=== PATIENT | male | born 1990 | race American Indian/Alaskan Native ===

== ENCOUNTER 2016-09-21 10:17 | Emergency (ER) | payer MEDICAID ==
[2016-09-21 10:25] VITALS: BP 137/82
[2016-09-21] MEDS ORDERED: Lidocaine 1% 30 ML SDV INJECT ONE (10:42)
--- NOTE | 2016-09-21 10:48 | EDM.PDOC ---
ED HPI GENERAL MEDICAL PROBLEM - General Chief Complaint: Skin Complaint Stated Complaint: [id number] BOIL Time Seen by Provider: 09/21/16 10:40 Source of Information: Reports: Patient History Limitations: Reports: No Limitations - History of Present Illness INITIAL COMMENTS - FREE TEXT/NARRATIVE: This 26 yo male patient reports to the ED with a 2-3 day history of an abscess in his left axilla. The patient reports he has had numerous abscesses drained, but has not had any follow-up with his primary care facility or a plastic design applier. The patient reports has been attempting to drain the abscess, but has not been able to "pop" it. The patient reports a history of MRSA. Onset Date: 09/18/16 Duration: Constant, Getting Worse Location: Reports: Upper Extremity, Left (axilla) Quality: Reports: Ache, Dull Severity: Moderate Improves with: Reports: None Worsens with: Reports: None Associated Symptoms: Reports: No Other Symptoms - Related Data Allergies Allergy/AdvReac Type Severity Reaction Status Date / Time No Known Allergies Allergy Verified 09/21/16 10:25 Home Meds: Home Meds Acetaminophen [Tylenol Extra Strength] 1,000 mg PO Q6HR PRN 06/18/14 [History] Ibuprofen 1,600 mg PO ONETIME 06/18/14 [History] Albuterol [IJD: Albuterol HFA] 1 puff .XX 09/21/16 [History] Past Medical History Respiratory History: Reports: Asthma, COPD Dermatologic History: Reports: Other (See Below) - Infectious Disease History Infectious Disease History: Reports: MRSA Social & Family History - Family History Family Medical History: Noncontributory - Tobacco Use Smoking Status *Q: Current Every Day Smoker Years of Tobacco use: 9 Packs/Tins Daily: 0.8 Used Tobacco, but Quit: No Second Hand Smoke Exposure: Yes - Caffeine Use Caffeine Use: Reports: Coffee, Energy Drinks, Soda - Alcohol Use Days Per Week of Alcohol Use: 0 - Recreational Drug Use Recreational Drug Use: No - Living Situation & Occupation Living situation: Reports: with Family Occupation: Employed ED ROS GENERAL - Review of Systems Review Of Systems: ROS reveals no pertinent complaints other than HPI. ED EXAM, SKIN/RASH Exam: See Below Exam Limited By: No Limitations General Appearance: Alert, WD/WN, Moderate Distress Eye Exam: Bilateral Eye: EOMI, Normal Inspection, PERRL Ears: Normal External Exam, Normal Canal, Hearing Grossly Normal, Normal TMs Nose: Normal Inspection, Normal Mucosa, No Blood Throat/Mouth: Normal Inspection, Normal Lips, Normal Teeth, Normal Gums, Normal Oropharynx, Normal Voice, No Airway Compromise Head: Atraumatic, Normocephalic Neck: Normal Inspection, Supple, Non-Tender, Full Range of Motion Respiratory/Chest: No Respiratory Distress, Lungs Clear, Normal Breath Sounds, No Accessory Muscle Use, Chest Non-Tender Cardiovascular: Normal Peripheral Pulses, Regular Rate, Rhythm, No Edema, No Gallop, No JVD, No Murmur, No Rub GI/Abdominal: Normal Bowel Sounds, Soft, Non-Tender, No Organomegaly, No Distention, No Abnormal Bruit, No Mass (Male) Exam: Deferred Rectal (Males) Exam: Deferred Extremities: Arm Pain (left axilla abscess) Neurological: Alert, Oriented, CN II-XII Intact Psychiatric: Normal Affect, Normal Mood Skin: Erythema, Increased Warmth Location, Skin: Upper Extremity, Left (axilla) Characteristics: Erythematous Associated features: Warmth, Tenderness, Wwelling, Induration Lymphatic: No Adenopathy ED SKIN PROCEDURES - I&D Site: left axilla Skin Prep: Providone-Iodine (Betadine) Local Anesthesia: Lidocaine: 1% Plain Local Anesthetic Volume: 3cc Area Incised With: 15 Blade Drainage: Purulent, Bloody, Moderate Amount Probed to Break Up Loculations: Yes Packed With: 1/4 in. Iodoform Sterile Dressinx4(s) Complications: No Course - Vital Signs Last Recorded V/S: Last Vital Signs Temp 36.9 C 09/21/16 10:21 Pulse 98 09/21/16 10:21 Resp 18 09/21/16 10:21 BP 137/82 09/21/16 10:21 Pulse Ox 98 09/21/16 10:21 - Orders/Labs/Meds Meds: Medications Discontinued Medications Generic Name Dose Route Start Last Admin Trade Name Freq PRN Reason Stop Dose Admin Hydrocodone Bitart/Acetaminophen 1 tab 09/21/16 11:02 [place] 325-10 Mg PO 09/21/16 11:03 ONETIME ONE Lidocaine HCl 30 ml 09/21/16 10:42 09/21/16 10:49 Xylocaine-Mpf 1% INJECT 09/21/16 10:43 30 ml ONETIME ONE Administration Departure - Departure Time of Disposition: 11:05 Disposition: Home, Self-Care 01 Condition: Fair Clinical Impression: Abscess of left axilla - Discharge Information Instructions: Abscess, [id number] Forms: ED Department Discharge Care Plan Goals: The patient's abscess was incised and drained during the visit in the ED. A sample of the drainage was sent to lab for further analysis. The patient was given an oral dose of [place] () while in the ED. The patient was discharged with a script for Keflex (500 mg) #40 to take 1 by mouth 4 times per day for 10 days and Bactrim DS #20 to take 1 by mouth 2 times per day for 10 days. The patient should follow-up with his primary care facility for continued evaluation (possible dermatology consult) and treatment.
[2016-09-21] MEDS ORDERED: Acetaminophen/HYDROcodone 325-10 MG Tab PO ONE (11:02)
== END 2016-09-21 11:13 | disposition home or self-care (01) ==
LOC: DL.ED 10:17
DX: L02.412 Cutaneous abscess of left axilla (principal); J45.909 Unspecified asthma, uncomplicated; J44.9 Chronic obstructive pulmonary disease, unspecified; F17.210 Nicotine dependence, cigarettes, uncomplicated
CPT/HCPCS: 10061; 87070; 87077; 87186; 99283; A9270

== ENCOUNTER 2017-02-12 16:55 | Emergency (ER) | payer MEDICAID ==
[2017-02-12 18:27] VITALS: BP 136/72
== END 2017-02-12 21:10 | disposition left against medical advice (07) ==
LOC: DL.ED 16:55
DX: Z53.21 Procedure and treatment not carried out due to patient leaving prior to being seen by health care provider (principal)
CPT/HCPCS: 99282

== ENCOUNTER 2017-02-16 09:36 | Day surgery (SDC) | payer MEDICAID ==
[2017-02-16] MEDS ORDERED: Dexamethasone 4 MG/ML SDV IV ONE (09:37)
[2017-02-16] MEDS ORDERED: Ketorolac 30 MG/ML SDV IVPUSH ONE (09:37)
[2017-02-16] MEDS ORDERED: fentaNYL 100 MCG/2 ML SDV IV ONE (09:37)
[2017-02-16] MEDS ORDERED: Lidocaine 1% 30 ML SDV INJECT ONE (09:37)
[2017-02-16] MEDS ORDERED: Ondansetron 4 MG/2 ML SDV IV ONE (09:37)
[2017-02-16] MEDS ORDERED: Propofol 200 MG/20 ML SDV IV ONE (09:37)
[2017-02-16] MEDS ORDERED: Midazolam 1 MG/ML 2 ML SDV IV ONE (09:37)
[2017-02-16] MEDS ORDERED: Lactated Ringers 1,000 ML IV SCH (10:15)
[2017-02-16] MEDS ORDERED: Lidocaine 1% 30 ML SDV ONE (10:47)
[2017-02-16] MEDS ORDERED: Lidocaine 1% 30 ML SDV INFILT ONE (11:13)
--- NOTE | 2017-02-18 10:41 | OR ---
DATE: 02/16/2017 PREOPERATIVE DIAGNOSES: Chronic bilateral axillary hidradenitis, left greater than right, with abscess in left axilla. POSTOPERATIVE DIAGNOSES: Chronic bilateral axillary hidradenitis, left greater than right, with abscess in left axilla. PROCEDURE: Incision and drainage with packing of axillary abscess, left side. ANESTHESIA: Local plus MAC. SPECIMEN: None. INDICATION FOR PROCEDURE: This 26-year-old male has chronic hidradenitis bilaterally of the axilla. He has had multiple incision and drainages of both sides, the left seems to be more bothersome than the right. By physical examination, he has a very painful tender mass in the anterior portion of the left axilla. On palpation, it expresses some purulent material. He is currently on antibiotics but is not totally improving yet. PROCEDURE IN DETAIL: After adequate preparation, an incision was made in the anterior portion of the left axilla. This was then opened widely using a Pean clamp to break up the loculations in the subcutaneous tissue. This was then suctioned clear and irrigated. Hemostasis was accomplished by cautery, and the wound was packed with a 2 x 2 sponge. [facility] /[id number]
[2017-02-18 14:31] VITALS: BP 119/75
== END 2017-02-16 13:30 | disposition home or self-care (01) ==
LOC: DL.SDS 09:36
PROVIDERS: ATTEND Surgery
DX: L73.2 Hidradenitis suppurativa (principal); L02.412 Cutaneous abscess of left axilla; L02.411 Cutaneous abscess of right axilla; J44.9 Chronic obstructive pulmonary disease, unspecified; E78.5 Hyperlipidemia, unspecified; K21.9 Gastro-esophageal reflux disease without esophagitis; F17.210 Nicotine dependence, cigarettes, uncomplicated; Z79.2 Long term (current) use of antibiotics; Z98.890 Other specified postprocedural states; Z79.899 Other long term (current) drug therapy
CPT/HCPCS: 10061; J7120; J1100; J1885; J2250; J2405; J2704; J3010

== ENCOUNTER 2017-03-15 08:03 | Day surgery (SDC) | payer MEDICAID ==
[2017-03-15] MEDS ORDERED: Midazolam 1 MG/ML 2 ML SDV IV ONE (08:04)
[2017-03-15] MEDS ORDERED: Propofol 200 MG/20 ML SDV IV ONE (08:04)
[2017-03-15] MEDS ORDERED: Ketorolac 30 MG/ML SDV IVPUSH ONE (08:04)
[2017-03-15] MEDS ORDERED: Dexamethasone 4 MG/ML SDV IV ONE (08:04)
[2017-03-15] MEDS ORDERED: Ondansetron 4 MG/2 ML SDV IV ONE (08:04)
[2017-03-15] MEDS ORDERED: fentaNYL 100 MCG/2 ML SDV IV ONE (08:04)
[2017-03-15] MEDS ORDERED: Lactated Ringers 1,000 ML IV SCH (08:45)
[2017-03-15] MEDS: HYDROmorphone 1 MG/ML Syringe IVPUSH SCH ×2 (11:55→12:20)
[2017-03-15 14:23] VITALS: BP 138/76
--- NOTE | 2017-03-15 15:54 | OR ---
DATE: 03/15/2017 PREOPERATIVE DIAGNOSIS: Chronic left axillary hidradenitis suppurativa. POSTOPERATIVE DIAGNOSIS: Chronic left axillary hidradenitis suppurativa. PROCEDURE: Wide local excision of axillary skin secondary to chronic infections. ANESTHESIA: General. ESTIMATED BLOOD LOSS: Minimal. SPECIMEN: Axillary skin. INDICATION FOR PROCEDURE: This 26-year-old male has had a long history of multiple abscesses in the axilla. He has a several drainage sites and several areas that have had recurrent abscess formation. This is consistent with hidradenitis. The risks, benefits, and expected outcomes of wide local excision as surgical treatment were discussed with him preoperatively. PROCEDURE IN DETAIL: After adequate preparation, elliptical incision was made in the left axillary skin, this was taken down to clear clean subcutaneous tissue and the skin and multiple abscess pockets were completely excised. This ended up measuring about 5 x 10 cm in an elliptical manner. Hemostasis was controlled, most of the rest of the tissue looked pretty healthy. The dermal layer was closed using interrupted 2-0 Vicryl sutures, and a 4-0 Monocryl was used to close the skin. This is somewhat tight in the anterior aspect and a few goldie were used to release some of the tension on the wound for the sutures, and a #10 Arnold-Gray drain had been placed previously and brought out through a separate stab incision. No other abnormalities were noted. [facility] /[id number]
== END 2017-03-15 13:29 | disposition home or self-care (01) ==
LOC: DL.SDS 08:03 → EDSTATUS 09:30 → DL.SDS 13:29
PROVIDERS: ATTEND Surgery
DX: L73.2 Hidradenitis suppurativa (principal); Z79.2 Long term (current) use of antibiotics; F17.200 Nicotine dependence, unspecified, uncomplicated
CPT/HCPCS: 11450; J1100; J1170; J1885; J2250; J2405; J2704; J3010; J7120

== ENCOUNTER 2018-09-23 03:39 | Emergency (ER) | payer MEDICAID, OTHER ==
[2018-09-23 03:49] VITALS: BP 130/84
[2018-09-23] MEDS ORDERED: Acetaminophen/HYDROcodone 325-10 MG Tab PO ONE (03:52)
--- NOTE | 2018-09-23 03:59 | EDM.PDOC ---
ED HPI GENERAL MEDICAL PROBLEM - General Chief Complaint: Skin Complaint Stated Complaint: BOIL IN ARMPIT Time Seen by Provider: 09/23/18 03:53 Source of Information: Reports: Patient History Limitations: Reports: No Limitations - History of Present Illness INITIAL COMMENTS - FREE TEXT/NARRATIVE: was seen at clinic in [place] earlier and did get it drained got doxycycline but nothing for pain. can't sleep. ER record show h/o prior surgical drainage by Dr Modi. Treatments LEGAL MANAGER: Reports: Acetaminophen Left Upper Axillary Pain Score (Numeric/FACES): 10 - Related Data Allergies Allergy/AdvReac Type Severity Reaction Status Date / Time No Known Allergies Allergy Verified 09/23/18 03:43 Home Meds: Home Meds Acetaminophen [Tylenol Extra Strength] 1,000 mg PO Q6HR PRN 06/18/14 [History] Ibuprofen 1,600 mg PO ONETIME 06/18/14 [History] Albuterol [IJD: Albuterol HFA] 1 puff INH ASDIRECTED 09/21/16 [History] Clindamycin Phosphate 1 applic TOP BID PRN 02/15/17 [History] Doxycycline [Vibramycin] 1 cap PO TID 02/15/17 [History] Sulfamethoxazole/Trimethoprim [Sulfamethoxazole-Tmp Ds Tablet] 1 tab PO BID [History] Past Medical History - Past Health History Medical/Surgical History: Denies Medical/Surgical History HEENT History: Reports: None Cardiovascular History: Reports: Heart Murmur Respiratory History: Reports: Asthma, COPD Gastrointestinal History: Reports: GERD Genitourinary History: Reports: None Musculoskeletal History: Reports: None Neurological History: Reports: None Psychiatric History: Reports: None Endocrine/Metabolic History: Reports: None Hematologic History: Reports: None Immunologic History: Reports: None Oncologic (Cancer) History: Reports: None Dermatologic History: Reports: Other (See Below) Other Dermatologic History: reoccuring boils (axillary hidradenitis) - Infectious Disease History Infectious Disease History: Reports: MRSA - Past Surgical History Head Surgeries/Procedures: Reports: None HEENT Surgical History: Reports: None Cardiovascular Surgical History: Reports: None Respiratory Surgical History: Reports: Other (See Below) Other Respiratory Surgeries/Procedures: had a tube in his chest at GI Surgical History: Reports: None Male Surgical History: Reports: None Musculoskeletal Surgical History: Reports: Other (See Below) Other Musculoskeletal Surgeries/Procedures:: sprained toe Social & Family History - Family History Family Medical History: Noncontributory - Caffeine Use Caffeine Use: Reports: Coffee, Energy Drinks, Soda, Tea - Living Situation & Occupation Living situation: Reports: with Family Occupation: Employed ED ROS GENERAL - Review of Systems Review Of Systems: ROS reveals no pertinent complaints other than HPI. ED EXAM, SKIN/RASH Exam: See Below Exam Limited By: No Limitations General Appearance: Alert, WD/WN, Mild Distress, Other (discomfort) Ears: Hearing Grossly Normal Throat/Mouth: Normal Voice, No Airway Compromise Head: Atraumatic Neck: Non-Tender, Full Range of Motion Respiratory/Chest: No Respiratory Distress Cardiovascular: Regular Rate, Rhythm GI/Abdominal: Soft, Non-Tender Extremities: Other (left axillary abscess with recent drainage without packing. minimal erythema, no lymphangitis, tender to palpate, unable determine subQ size. BILL POWER wnl.) Neurological: Alert, Oriented, Normal Cognition, Normal Gait, No Motor/Sensory Deficits Psychiatric: Flat Affect Skin: Warm, Dry, Normal Color Location, Skin: Upper Extremity, Left Associated features: Tenderness, Swelling, Inflammation. No: Lymphangitis, Crusting, Weeping Lymphatic: No Adenopathy Course - Vital Signs Last Recorded V/S: Last Vital Signs Temp 37.0 C 09/23/18 03:44 Pulse 114 H 09/23/18 03:44 Resp 14 09/23/18 03:44 BP 130/84 09/23/18 03:44 Pulse Ox 96 09/23/18 03:44 - Orders/Labs/Meds Meds: Medications Discontinued Medications Generic Name Dose Route Start Last Admin Trade Name Brenden PRN Reason Stop Dose Admin Hydrocodone Bitart/Acetaminophen 1 tab 09/23/18 03:52 09/23/18 04:02 [place] 325-10 Mg PO 09/23/18 03:53 1 tab ONETIME ONE Administration Departure - Departure Time of Disposition: 04:00 Disposition: Home, Self-Care 01 Condition: Fair Clinical Impression: Abscess - Discharge Information Instructions: Skin Abscess, [id number] Referrals: PCP,None [Ordering Only Provider] - Forms: ED Department Discharge Additional Instructions: 1) try hot compress to area 2) continue antibiotics given 3) see clinic for DERMATOLOGY REFERRAL or SURGICAL REFERRAL 4) take tyelnol or motrin as needed for discomfort
== END 2018-09-23 04:09 | disposition home or self-care (01) ==
LOC: DL.ED 03:39
DX: L02.412 Cutaneous abscess of left axilla (principal); Z79.899 Other long term (current) drug therapy
CPT/HCPCS: 99282; A9270

== ENCOUNTER 2018-09-24 08:22 | Emergency (ER) | payer OTHER ==
[2018-09-24 08:31] VITALS: BP 151/90
[2018-09-24] MEDS: Lidocaine 1% 30 ML SDV INJECT PRN (09:06)
[2018-09-24 09:30] LABS: ANION GAP 15.9; CHLORIDE,CL 104 mmol/L (101-111); SODIUM,NA 136 mmol/L (135-145)
[2018-09-24] MEDS: Iopamidol 612 MG/ML 75 ML Bottle IVPUSH ONE (10:08)
[2018-09-24] MEDS: Piperacillin/Tazobactam 3.375 GM in Sodium Chloride 0.9% 100 ML IV ONE (10:37)
[2018-09-24] MEDS: Sodium Chloride 0.9% 1,000 ML IV ONE (10:37)
--- NOTE | 2018-09-25 08:47 | EDM.PDOC ---
Scribed by Keyana Cox 09/24/18 1026 for Siobhan Byrd NP ED HPI GENERAL MEDICAL PROBLEM - General Chief Complaint: Skin Complaint Stated Complaint: boil pain Time Seen by Provider: 09/24/18 08:45 Source of Information: Reports: Patient, RN, RN Notes Reviewed History Limitations: Reports: No Limitations - History of Present Illness INITIAL COMMENTS - FREE TEXT/NARRATIVE: Patient presents to ER with complaint of 5 days of pain to left axilla. He has had no fevers or chills. Patient was given an antibiotic of Doxycycline, which he has not started. He was seen in [place] a few days ago and in [place] yesterday, 09/23/18. He had an ultrasound which showed no pocket. He was given Hydrocodone and took 2 this a.m. He has no chest pain or shortness of breath. Onset: Gradual Duration: Getting Worse Location: Reports: Other (left axilla) Quality: Reports: Ache Severity: Moderate Improves with: Reports: None Worsens with: Reports: None Associated Symptoms: Reports: No Other Symptoms Left Arm Pain Score (Numeric/FACES): 10 - Related Data Allergies Allergy/AdvReac Type Severity Reaction Status Date / Time No Known Allergies Allergy Verified 09/24/18 08:30 Home Meds: Home Meds Acetaminophen [Tylenol Extra Strength] 1,000 mg PO Q6HR PRN 06/18/14 [History] Ibuprofen 1,600 mg PO ONETIME 06/18/14 [History] Albuterol [IJD: Albuterol HFA] 1 puff INH ASDIRECTED 09/21/16 [History] Clindamycin Phosphate 1 applic TOP BID PRN 02/15/17 [History] Doxycycline [Vibramycin] 1 cap PO TID 02/15/17 [History] Hydrocodone/Acetaminophen [Hydrocodon-Acetaminophn 10-325] 2 tab PO Q6H PRN [History] Past Medical History - Past Health History Medical/Surgical History: Denies Medical/Surgical History HEENT History: Reports: None Cardiovascular History: Reports: Heart Murmur Respiratory History: Reports: Asthma, COPD Gastrointestinal History: Reports: GERD Genitourinary History: Reports: None Musculoskeletal History: Reports: None Neurological History: Reports: None Psychiatric History: Reports: None Endocrine/Metabolic History: Reports: None Hematologic History: Reports: None Immunologic History: Reports: None Oncologic (Cancer) History: Reports: None Dermatologic History: Reports: Other (See Below) Other Dermatologic History: reoccuring boils (axillary hidradenitis) - Infectious Disease History Infectious Disease History: Reports: MRSA - Past Surgical History Head Surgeries/Procedures: Reports: None HEENT Surgical History: Reports: None Cardiovascular Surgical History: Reports: None Respiratory Surgical History: Reports: Other (See Below) Other Respiratory Surgeries/Procedures: had a tube in his chest at GI Surgical History: Reports: None Male Surgical History: Reports: None Musculoskeletal Surgical History: Reports: Other (See Below) Other Musculoskeletal Surgeries/Procedures:: sprained toe Social & Family History - Family History Family Medical History: Noncontributory - Tobacco Use Smoking Status *Q: Current Every Day Smoker Years of Tobacco use: 10 Packs/Tins Daily: 1 - Caffeine Use Caffeine Use: Reports: Coffee, Energy Drinks, Soda - Recreational Drug Use Recreational Drug Use: No - Living Situation & Occupation Living situation: Reports: with Family Occupation: Employed ED ROS GENERAL - Review of Systems Review Of Systems: ROS reveals no pertinent complaints other than HPI. ED EXAM, SKIN/RASH Exam: See Below Exam Limited By: No Limitations General Appearance: Other (diaphoretic) Eye Exam: Bilateral Eye: EOMI, Normal Inspection, PERRL Ears: Normal External Exam, Normal Canal, Hearing Grossly Normal, Normal TMs Nose: Normal Inspection, Normal Mucosa, No Blood Throat/Mouth: Normal Inspection, Normal Lips, Normal Teeth, Normal Gums, Normal Oropharynx, Normal Voice, No Airway Compromise Head: Atraumatic, Normocephalic Neck: Normal Inspection, Supple, Non-Tender, Full Range of Motion Respiratory/Chest: Crackles (bilaterally) Cardiovascular: Normal Peripheral Pulses, Regular Rate, Rhythm, No Edema, No Gallop, No JVD, No Murmur, No Rub GI/Abdominal: Normal Bowel Sounds, Soft, Non-Tender, No Organomegaly, No Distention, No Abnormal Bruit, No Mass (Male) Exam: Deferred Rectal (Males) Exam: Deferred Back Exam: Normal Inspection, Full Range of Motion, NT Extremities: Normal Inspection, Normal Range of Motion, Non-Tender, No Pedal Edema, Normal Capillary Refill Neurological: Alert, Oriented, CN II-XII Intact, Normal Cognition, Normal Gait, Normal Reflexes, No Motor/Sensory Deficits Psychiatric: Normal Affect, Normal Mood Skin: Other (left axilla erythematous. Old keloid scarring from previous surgery ') Lymphatic: No Adenopathy ED SKIN PROCEDURES - I&D Site: left axillary Skin Prep: Providone-Iodine (Betadine), Isopropyl Alcohol (Alcohol) Local Anesthesia: Lidocaine: 1% Plain Local Anesthetic Volume: 5cc Area Incised With: Needle (18g) Drainage: Bloody Probed to Break Up Loculations: Yes Sterile Dressing: None Complications: No Course - Vital Signs Last Recorded V/S: Last Vital Signs Temp 98.1 F 09/24/18 08:28 Pulse 107 H 09/24/18 08:28 Resp 20 09/24/18 08:28 BP 151/90 H 09/24/18 08:28 Pulse Ox 99 09/24/18 08:28 - Orders/Labs/Meds Orders: Active Orders 24 hr Category Date Time Status CULTURE BLOOD [BC] Stat Lab 09/24/18 10:05 Received CULTURE BLOOD [BC] Stat Lab 09/24/18 10:10 Received CULTURE WOUND [RM] Stat Lab 09/24/18 09:15 Results Blood Culture x2 Reflex Set [OM.PC] Stat Oth 09/24/18 09:58 Ordered Labs: Laboratory Tests 09/24/18 09/24/18 09/24/18 Range/Units 09:04 09:04 10:10 WBC 27.2 H* (5.0-10.0) 10^3/uL RBC 5.66 (4.6-6.2) 10^6/uL Hgb 17.8 (14.0-18.0) g/dL Hct 51.5 (40.0-54.0) % MCV 91.0 (80-100) fL MCH 31.4 (27.0-34.0) pg MCHC 34.6 (33.0-35.0) g/dL Plt Count 252 (150-450) 10^3/uL Neut % (Auto) 75.7 H (42.2-75.2) % Lymph % (Auto) 17.5 L (20.5-50.1) % [place] % (Auto) 6.3 (2-8) % Eos % (Auto) 0.3 L (1.0-3.0) % Baso % (Auto) 0.2 (0.0-1.0) % Sodium 136 (135-145) mmol/L Potassium 3.9 (3.6-5.0) mmol/L Chloride 104 (101-111) mmol/L Carbon Dioxide 20.0 L (21.0-31.0) mmol/L Anion Gap 15.9 BUN 11 (7-18) mg/dL Creatinine 0.8 (0.6-1.3) mg/dL Est Cr Clr Drug Dosing 138.70 mL/min Estimated GFR (MDRD) > 60 BUN/Creatinine Ratio 13.75 Glucose 107 H (74-105) mg/dL Lactic Acid 1.2 (0.5-2.2) mmol/L Calcium 8.7 (8.4-10.2) mg/dl Total Bilirubin 0.8 (0.2-1.0) mg/dL AST 23 (10-42) IU/L ALT 17 (10-60) IU/L Alkaline Phosphatase 56 (42-121) IU/L Total Protein 8.0 (6.7-8.2) g/dl Albumin 4.1 (3.2-5.5) g/dl Globulin 3.9 Albumin/Globulin Ratio 1.05 Meds: Medications Discontinued Medications Generic Name Dose Route Start Last Admin Trade Name Freq PRN Reason Stop Dose Admin Piperacillin Sod/Tazobactam 100 mls @ 200 mls/hr 09/24/18 10:04 09/24/18 10: 37 Sod 3.375 gm/ Sodium Chloride IV 09/24/18 10:33 200 mls/hr ONETIME ONE Administration Sodium Chloride 1,000 mls @ 999 mls/hr 09/24/18 10:03 09/24/18 10:37 Normal Saline IV 09/24/18 11:03 999 mls/hr .BOLUS ONE Administration Iopamidol 75 ml 09/24/18 09:24 09/24/18 10:08 Isovue-300 (61%) IVPUSH 09/24/18 09:25 75 ml ONETIME ONE Administration Lidocaine HCl 30 ml 09/24/18 08:57 09/24/18 09:06 Xylocaine-Mpf 1% INJECT 10 ml ONETIME PRN Administration incision - Radiology Interpretation Free Text/Narrative:: Chest CT with contrast: FINDINGS: Lungs: The lungs demonstrate mild scarring. There are a few small scattered bullae. There is no significant airspace consolidation. Pleural space: Unremarkable. No pneumothorax. No pleural effusion. Heart: Unremarkable. No cardiomegaly. No pericardial effusion. Aorta: The thoracic aorta is nonaneurysmal. Lymph nodes: There are subcentimeter short axis mediastinal and bilateral hilar lymph nodes, without pathologic lymphadenopathy identified. Bones/joints: Mild degenerative changes involve the spine. Soft tissues: Along the left axilla, there is a skin based focus of fluid density measuring approximately 4.6 x 2.7 x 5.1 cm. This contains a punctate focus of gas, suggesting abscess. Upper abdomen: The visualized abdominal structures appear unremarkable. IMPRESSION: 1. Skin based focus of fluid density along the left axilla containing a punctate focus of gas, suggesting abscess. 2. Few scattered pulmonary bullae without acute pulmonary disease. Thank you for allowing us to participate in the care of your patient. Dictated and Authenticated by: Kris Hernandez MD 09/24/2018 10:36 AM Central Time ([place] & [place]) See rad report - Re-Assessments/Exams Free Text/Narrative Re-Assessment/Exam: 09/25/18 08:45 Discussed patient case with Dr. Henry who agreed to accept the patient for transfer to [facility]. 09/25/18 08:46 Patient refuses ambulance transport to [place]. States he will drive [facility]. IV will be removed and transfer papers sent with patient. Departure - Departure Time of Disposition: 11:20 Disposition: Home, Self-Care 01 Condition: Fair Clinical Impression: Abscess of left axilla - Discharge Information *PRESCRIPTION DRUG MONITORING PROGRAM REVIEWED*: No *COPY OF PRESCRIPTION DRUG MONITORING REPORT IN PATIENT ANN: No Referrals: PCP,None [Primary Care Provider] - Forms: ED Department Discharge Additional Instructions: Patient to drive to [facility] for direct admission. - My Orders Last 24 Hours: My Active Orders 09/24/18 09:15 CULTURE WOUND [RM] Stat 09/24/18 09:58 Blood Culture x2 Reflex Set [OM.PC] Stat 09/24/18 10:05 CULTURE BLOOD [BC] Stat 09/24/18 10:10 CULTURE BLOOD [BC] Stat - Assessment/Plan Last 24 Hours: My Active Orders 09/24/18 09:15 CULTURE WOUND [RM] Stat 09/24/18 09:58 Blood Culture x2 Reflex Set [OM.PC] Stat 09/24/18 10:05 CULTURE BLOOD [BC] Stat 09/24/18 10:10 CULTURE BLOOD [BC] Stat I have read and agree with the documentation that has been completed regarding this visit. By signing this record, I attest that the documentation was completed in my physical presence and is an accurate record of the encounter.
== END 2018-09-24 11:20 | disposition home or self-care (01) ==
LOC: DL.ED 08:22
DX: L02.412 Cutaneous abscess of left axilla (principal); F17.210 Nicotine dependence, cigarettes, uncomplicated; J44.9 Chronic obstructive pulmonary disease, unspecified; K21.9 Gastro-esophageal reflux disease without esophagitis; J45.909 Unspecified asthma, uncomplicated; Z79.899 Other long term (current) drug therapy
CPT/HCPCS: 10160; 36415; 71260; 80053; 83605; 85025; 87040; 87070; 96365; 99283; 99284; J2001; J2543; J7030; J7050; Q9967

== ENCOUNTER 2019-04-11 16:07 | Emergency (ER) | payer MEDICAID, OTHER ==
[2019-04-11 17:01] VITALS: BP 144/56; PULSE 99
[2019-04-11] MEDS ORDERED: Ondansetron 4 MG/2 ML SDV IVPUSH ONE (17:23)
[2019-04-11] MEDS ORDERED: Ketorolac 30 MG/ML SDV IVPUSH ONE (17:23)
[2019-04-11] MEDS ORDERED: Sodium Chloride 0.9% 1,000 ML IV ONE (17:24)
--- NOTE | 2019-04-11 17:26 | EDM.PDOC ---
<Reza Puente - Last Filed: 04/11/19 18:01> ED HPI GENERAL MEDICAL PROBLEM - General Chief Complaint: Abdominal Pain Stated Complaint: ABDOMINAL PAIN Time Seen by Provider: 04/11/19 17:24 Source of Information: Reports: Patient History Limitations: Reports: No Limitations - History of Present Illness INITIAL COMMENTS - FREE TEXT/NARRATIVE: onset upper abd pain since last night. did eat some home made deer sausages. no diarrhoea. 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 [No Known Home Meds] 04/11/19 [History] Past Medical History - Past Health History Medical/Surgical History: Denies Medical/Surgical History HEENT History: Reports: None Cardiovascular History: Reports: Heart Murmur Respiratory History: Reports: Asthma, COPD Gastrointestinal History: Reports: GERD Genitourinary History: Reports: None Musculoskeletal History: Reports: None Neurological History: Reports: None Psychiatric History: Reports: None Endocrine/Metabolic History: Reports: None Hematologic History: Reports: None Immunologic History: Reports: None Oncologic (Cancer) History: Reports: None Dermatologic History: Reports: Other (See Below) Other Dermatologic History: reoccuring boils (axillary hidradenitis) - Infectious Disease History Infectious Disease History: Reports: MRSA - Past Surgical History Head Surgeries/Procedures: Reports: None HEENT Surgical History: Reports: None Cardiovascular Surgical History: Reports: None Respiratory Surgical History: Reports: Other (See Below) Other Respiratory Surgeries/Procedures: had a tube in his chest at GI Surgical History: Reports: None Male Surgical History: Reports: None Social & Family History - Family History Family Medical History: Noncontributory - Tobacco Use Smoking Status *Q: Current Every Day Smoker Years of Tobacco use: 13 Packs/Tins Daily: 1 Second Hand Smoke Exposure: Yes - Caffeine Use Caffeine Use: Reports: Coffee - Recreational Drug Use Recreational Drug Use: Yes Recreational Drug Type: Reports: Marijuana/Hashish Recreational Drug Use Frequency: Socially - Living Situation & Occupation Living situation: Reports: with Family Occupation: Employed ED ROS GENERAL - Review of Systems Review Of Systems: Comprehensive ROS is negative, except as noted in HPI. ED EXAM, GI/ABD - Physical Exam Exam: See Below Exam Limited By: No Limitations General Appearance: Alert, WD/WN, Mild Distress, Moderate Distress. No: Active Emesis Ears: Hearing Grossly Normal Throat/Mouth: Normal Voice, No Airway Compromise Head: Atraumatic Neck: Non-Tender, Full Range of Motion Respiratory/Chest: No Respiratory Distress Cardiovascular: Regular Rate, Rhythm GI/Abdominal Exam: Guarding, Tender, Other ([id number] >). No: Distended, Rigid, Rebound Neurological: Alert, Oriented, Normal Cognition, Normal Gait, No Motor/Sensory Deficits Psychiatric: Flat Affect, Tearful Skin Exam: Warm, Dry, Normal Color Lymphatic: No Adenopathy Course - Vital Signs Last Recorded V/S: Last Vital Signs Temp 36.3 C 04/11/19 17:00 Pulse 99 04/11/19 17:00 Resp 18 04/11/19 17:00 BP 144/56 H 04/11/19 17:00 Pulse Ox 99 04/11/19 17:00 - Orders/Labs/Meds Orders: Active Orders 24 hr Category Date Time Status Abdomen Pelvis w Cont [CT] Urgent Exams 04/11/19 18:00 Taken metroNIDAZOLE Med 04/11/19 19:35 Once 500 mg PO ONETIME ONE Medication Orders Metronidazole (Metronidazole) 500 mg PO ONETIME ONE Stop: 04/11/19 19:36 Labs: Laboratory Tests 04/11/19 04/11/19 Range/Units 17:32 17:32 WBC 16.6 H (5.0-10.0) 10^3/uL RBC 6.00 (4.6-6.2) 10^6/uL Hgb 19.0 H (14.0-18.0) g/dL Hct 54.3 H (40.0-54.0) % MCV 90.5 (80-100) fL MCH 31.7 (27.0-34.0) pg MCHC 35.0 (33.0-35.0) g/dL Plt Count 245 (150-450) 10^3/uL Neut % (Auto) 78.0 H (42.2-75.2) % Lymph % (Auto) 13.8 L (20.5-50.1) % [place] % (Auto) 7.6 (2-8) % Eos % (Auto) 0.5 L (1.0-3.0) % Baso % (Auto) 0.1 (0.0-1.0) % Sodium 137 (135-145) mmol/L Potassium 4.1 (3.6-5.0) mmol/L Chloride 100 L (101-111) mmol/L Carbon Dioxide 27.0 (21.0-31.0) mmol/L Anion Gap 14.1 BUN 11 (7-18) mg/dL Creatinine 0.8 (0.6-1.3) mg/dL Est Cr Clr Drug Dosing 144.18 mL/min Estimated GFR (MDRD) > 60 BUN/Creatinine Ratio 13.75 Glucose 113 H (74-105) mg/dL Calcium 9.2 (8.4-10.2) mg/dl Total Bilirubin 1.2 H (0.2-1.0) mg/dL AST 18 (10-42) IU/L ALT 22 (10-60) IU/L Alkaline Phosphatase 52 (42-121) IU/L Total Protein 8.1 (6.7-8.2) g/dl Albumin 4.4 (3.2-5.5) g/dl Globulin 3.7 Albumin/Globulin Ratio 1.19 Amylase 42 (28-100) U/L Lipase 27 (22-51) U/L Meds: Medications Generic Name Dose Route Start Last Admin Trade Name Freq PRN Reason Stop Dose Admin Metronidazole 500 mg 04/11/19 19:35 Metronidazole PO 04/11/19 19:36 ONETIME ONE Discontinued Medications Generic Name Dose Route Start Last Admin Trade Name Freq PRN Reason Stop Dose Admin Sodium Chloride 1,000 mls @ 999 mls/hr 04/11/19 17:24 04/11/19 17:35 Normal Saline IV 04/11/19 18:24 999 mls/hr .BOLUS ONE Administration Iopamidol 100 ml 04/11/19 18:00 04/11/19 18:52 Isovue-300 (61%) IVPUSH 04/11/19 18:01 75 ml ONETIME ONE Administration Ketorolac Tromethamine 30 mg 04/11/19 17:23 04/11/19 17:35 Toradol IVPUSH 04/11/19 17:24 30 mg ONETIME ONE Administration Ondansetron HCl 4 mg 04/11/19 17:23 04/11/19 17:36 Zofrjohn IVPUSH 04/11/19 17:24 4 mg ONETIME ONE Administration Departure - Departure Disposition: Home, Self-Care 01 Clinical Impression: Colitis - Discharge Information Forms: ED Department Discharge Care Plan Goals: The patient was advised of the examination, lab and CT results during the visit. The patient was given IV fluids, IV Toradol and an oral dose of Metronidazole while in the ED. The patient was encouraged to stick to a BRAT diet (Bananas, Rice, Applesauce and [place]) for the next 48 hours with small frequent sips of fluid. The patient was discharged with a script for Metronidazole (500 mg) #30 to take 1 by mouth 3 times per day for 10 days. If the patient has any additional symptoms or concerns, the patient should either return to the emergency department or visit his primary care facility. Sepsis Event Note - Evaluation Sepsis Screening Result: No Definite Risk - Focused Exam Vital Signs: Vital Signs Temp Pulse Resp BP BP Pulse Ox 04/11/19 17:00 36.3 C 99 18 144/56 H 99 04/11/19 16:29 36.3 C 97 20 137/90 100 Date Exam was Performed: 04/11/19 Time Exam was Performed: 18:01 - My Orders Last 24 Hours: My Active Orders 04/11/19 19:35 metroNIDAZOLE 500 mg PO ONETIME ONE - Assessment/Plan Last 24 Hours: My Active Orders 04/11/19 19:35 metroNIDAZOLE 500 mg PO ONETIME ONE <Lev Burnett - Last Filed: 04/11/19 19:40> Departure - Departure Time of Disposition: 19:36 Condition: Fair - Discharge Information *PRESCRIPTION DRUG MONITORING PROGRAM REVIEWED*: Not Applicable *COPY OF PRESCRIPTION DRUG MONITORING REPORT IN PATIENT ANN: Not Applicable Sepsis Event Note - Focused Exam Date Exam was Performed: 04/11/19 Time Exam was Performed: 19:36
[2019-04-11 17:58] LABS: ANION GAP 14.1; CHLORIDE,CL 100 mmol/L (101-111); SODIUM,NA 137 mmol/L (135-145)
[2019-04-11] MEDS ORDERED: Iopamidol 612 MG/ML 100 ML Bottle IVPUSH ONE (18:00)
[2019-04-11] MEDS ORDERED: metroNIDAZOLE 250 MG Tab PO ONE (19:35)
== END 2019-04-11 19:50 | disposition home or self-care (01) ==
LOC: DL.ED 16:07
DX: K52.9 Noninfective gastroenteritis and colitis, unspecified (principal); J44.9 Chronic obstructive pulmonary disease, unspecified; F17.210 Nicotine dependence, cigarettes, uncomplicated
CPT/HCPCS: 36415; 74177; 80053; 82150; 83690; 85025; 96361; 96374; 96375; 99284; A9270; J1885; J2405; J7030; Q9967

== ENCOUNTER 2020-03-14 21:13 | Emergency (ER) | payer MEDICAID ==
[2020-03-14 21:30] VITALS: BP 143/92; PULSE 78
--- NOTE | 2020-03-14 22:13 | CR ---
PROCEDURE INFORMATION: Exam: XR Abdomen, 1 View Exam date and time: 03/14/2020 9:59 PM Age: 29 years old Clinical indication: Other: Pain; Additional info: Constipation, abd pain TECHNIQUE: Imaging protocol: XR of the abdomen. Views: Frontal supine view of the abdomen. 1 View. COMPARISON: CT Chest Abdomen Pelvis w Cont 03/11/2020 5:37 PM FINDINGS: Gastrointestinal tract: Normal. No bowel dilation. Bones/joints: Unremarkable. IMPRESSION: No acute findings.
[2020-03-14 22:54] LABS: ANION GAP 11.4 mEq/L (7-13); CHLORIDE,CL 102 mmol/L (98-107); SODIUM,NA 136 mmol/L (136-145)
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
== END 2020-03-15 00:55 | disposition home or self-care (01) ==
LOC: DL.ED 21:13
DX: K59.00 Constipation, unspecified (principal); J44.9 Chronic obstructive pulmonary disease, unspecified; F17.210 Nicotine dependence, cigarettes, uncomplicated
CPT/HCPCS: 36415; 74018; 80053; 85025; 99282; 99283

== ENCOUNTER 2020-03-23 00:52 | Emergency (ER) | payer MEDICAID ==
[2020-03-23 01:06] VITALS: BP 136/89; PULSE 104
[2020-03-23] MEDS ORDERED: Sodium Chloride 0.9% 1,000 ML IV ONE (01:09)
[2020-03-23] MEDS ORDERED: Ondansetron 4 MG/2 ML SDV IVPUSH ONE (01:09)
--- NOTE | 2020-03-23 01:17 | EDM.PDOC ---
ED HPI GENERAL MEDICAL PROBLEM - General Chief Complaint: Abdominal Pain Stated Complaint: HEART IS RACING, PAIN AROUND HIS STOMACH Time Seen by Provider: 03/23/20 01:16 Source of Information: Reports: Patient, Old Records History Limitations: Reports: No Limitations - History of Present Illness INITIAL COMMENTS - FREE TEXT/NARRATIVE: long h/o abd pain and present episode for 2 weeks was seen here 03-11 CAT showed nothing acute and 03-14 x-ray negative. no follow up at clinic since he comes here at ER. admits to drinking regularly but none past few days. Epigastric Pain Score (Numeric/FACES): 6 - Related Data Allergies Allergy/AdvReac Type Severity Reaction Status Date / Time No Known Allergies Allergy Verified 03/23/20 00:58 Home Meds: Home Meds . [No Known Home Meds] 04/11/19 [History] Past Medical History - Past Health History Medical/Surgical History: Denies Medical/Surgical History HEENT History: Reports: None Cardiovascular History: Reports: Heart Murmur Respiratory History: Reports: Asthma, COPD Gastrointestinal History: Reports: GERD Genitourinary History: Reports: None Musculoskeletal History: Reports: None Neurological History: Reports: None Psychiatric History: Reports: None Endocrine/Metabolic History: Reports: None Hematologic History: Reports: None Immunologic History: Reports: None Oncologic (Cancer) History: Reports: None Dermatologic History: Reports: Other (See Below) Other Dermatologic History: reoccuring boils (axillary hidradenitis) - Infectious Disease History Infectious Disease History: Reports: MRSA - Past Surgical History Head Surgeries/Procedures: Reports: None HEENT Surgical History: Reports: None Cardiovascular Surgical History: Reports: None Respiratory Surgical History: Reports: Other (See Below) Other Respiratory Surgeries/Procedures: had a tube in his chest at GI Surgical History: Reports: None Male Surgical History: Reports: None Musculoskeletal Surgical History: Reports: Other (See Below) Other Musculoskeletal Surgeries/Procedures:: sprained toe Social & Family History - Family History Family Medical History: No Pertinent Family History - Tobacco Use Tobacco Use Status *Q: Heavy Tobacco User Years of Tobacco use: 15 Packs/Tins Daily: 0.5 - Caffeine Use Caffeine Use: Reports: Coffee - Recreational Drug Use Recreational Drug Use: No - Living Situation & Occupation Living situation: Reports: with Family Occupation: Employed ED ROS GENERAL - Review of Systems Review Of Systems: Comprehensive ROS is negative, except as noted in HPI. ED EXAM, GI/ABD - Physical Exam Exam: See Below Exam Limited By: No Limitations General Appearance: Alert, WD/WN, Mild Distress, Other (discomfort nausea). No: Active Emesis Ears: Hearing Grossly Normal Throat/Mouth: Normal Voice, No Airway Compromise Head: Atraumatic Neck: Non-Tender, Full Range of Motion Respiratory/Chest: No Respiratory Distress Cardiovascular: Regular Rate, Rhythm GI/Abdominal Exam: Guarding, Tender, Other (LUQ region). No: Distended, Rigid, Rebound (Male) Exam: Deferred Rectal (Males) Exam: Deferred Neurological: Alert, Oriented, Normal Cognition, Normal Gait, No Motor/Sensory Deficits Psychiatric: Tearful Skin Exam: Warm, Dry, Normal Color Lymphatic: No Adenopathy Course - Vital Signs Last Recorded V/S: Last Vital Signs Temp 37.0 C 03/23/20 01:00 Pulse 104 H 03/23/20 01:00 Resp 18 03/23/20 01:00 BP 136/89 03/23/20 01:00 Pulse Ox 96 03/23/20 01:00 - Orders/Labs/Meds Orders: Active Orders 24 hr Category Date Time Status LORazepam [Ativan] Med 03/23/20 02:45 Once 2 mg IVPUSH ONETIME ONE Pantoprazole [ProTONIX IV] Med 03/23/20 02:45 Once 80 mg IVPUSH .BOLUS ONE Labs: Laboratory Tests 03/23/20 03/23/20 03/23/20 Range/Units 01:02 01:02 02:20 WBC 17.4 H (5.0-10.0) 10^3/uL RBC 5.74 (4.6-6.2) 10^6/uL Hgb 18.2 H (14.0-18.0) g/dL Hct 52.4 (40.0-54.0) % MCV 91.3 (80-100) fL MCH 31.7 (27.0-34.0) pg MCHC 34.7 (33.0-35.0) g/dL Plt Count 312 (150-450) 10^3/uL Neut % (Auto) 65.7 (42.2-75.2) % Lymph % (Auto) 23.9 (20.5-50.1) % [place] % (Auto) 9.0 H (2-8) % Eos % (Auto) 1.1 (1.0-3.0) % Baso % (Auto) 0.3 (0.0-1.0) % Sodium 139 (136-145) mmol/L Potassium 4.0 (3.5-5.1) mmol/L Chloride 99 (98-107) mmol/L Carbon Dioxide 28 (21-32) mmol/L Anion Gap 16.0 H (7-13) mEq/L BUN 14 (7-18) mg/dL Creatinine 1.04 (0.70-1.30) mg/dL Est Cr Clr Drug Dosing 105.75 mL/min Estimated GFR (MDRD) > 60 BUN/Creatinine Ratio 13.5 (No establ ref range) Glucose 99 (74-99) mg/dL Calcium 9.5 (8.5-10.1) mg/dL Total Bilirubin 0.3 (0.2-1.0) mg/dL AST 14 L (15-37) U/L ALT 21 (16-63) U/L Alkaline Phosphatase 60 (46-116) U/L Total Protein 8.4 H (6.4-8.2) g/dL Albumin 4.2 (3.4-5.0) g/dL Globulin 4.2 Albumin/Globulin Ratio 1.0 Amylase 45 (25-115) U/L Lipase 120 (73-393) U/L Urine Opiates Screen Negative (NEGATIVE) Ur Oxycodone Screen Negative (NEGATIVE) Urine Methadone Screen Negative (NEGATIVE) Ur Barbiturates Screen Negative (NEGATIVE) U Tricyclic Antidepress Negative (NEGATIVE) Ur Phencyclidine Scrn Negative (NEGATIVE) Ur Amphetamine Screen Positive H (NEGATIVE) U Methamphetamines Scrn Positive H (NEGATIVE) Urine MDMA Screen Negative (NEGATIVE) U Benzodiazepines Scrn Negative (NEGATIVE) Urine Cocaine Screen Negative (NEGATIVE) U Marijuana (THC) Screen Positive H (NEGATIVE) Ethyl Alcohol < 3 (0) mg/dL Meds: Medications Discontinued Medications Generic Name Dose Route Start Last Admin Trade Name Freq PRN Reason Stop Dose Admin Sodium Chloride 1,000 mls @ 999 mls/hr 03/23/20 01:09 03/23/20 01:14 Normal Saline IV 03/23/20 02:09 999 mls/hr .BOLUS ONE Administration Ondansetron HCl 4 mg 03/23/20 01:09 03/23/20 01:14 Zofran IVPUSH 03/23/20 01:10 4 mg ONETIME ONE Administration - Re-Assessments/Exams Free Text/Narrative Re-Assessment/Exam: 03/23/20 02:46 results discussed with pt. Departure - Departure Time of Disposition: 02:46 Disposition: Home, Self-Care 01 Condition: Good Clinical Impression: Methamphetamine abuse, Cannabinoid hyperemesis syndrome Abdominal pain Qualifiers: Abdominal location: left upper quadrant Qualified Code(s): R10.12 - Left upper quadrant pain - Discharge Information Instructions: Abdominal Pain, Adult, [id number] Forms: ED Department Discharge Additional Instructions: 1) avoid meth and pot 2) follow up at clinic Sepsis Event Note (ED) - Evaluation Sepsis Screening Result: No Definite Risk - Focused Exam Vital Signs: Vital Signs Temp Pulse Resp BP Pulse Ox 03/23/20 01:00 37.0 C 104 H 18 136/89 96 - My Orders Last 24 Hours: My Active Orders 03/23/20 02:45 LORazepam [Ativan] 2 mg IVPUSH ONETIME ONE Pantoprazole [ProTONIX IV] 80 mg IVPUSH .BOLUS ONE - Assessment/Plan Last 24 Hours: My Active Orders 03/23/20 02:45 LORazepam [Ativan] 2 mg IVPUSH ONETIME ONE Pantoprazole [ProTONIX IV] 80 mg IVPUSH .BOLUS ONE
[2020-03-23 01:30] LABS: CHLORIDE,CL 99 mmol/L (98-107); SODIUM,NA 139 mmol/L (136-145)
[2020-03-23] MEDS ORDERED: Pantoprazole 40 MG Vial IVPUSH ONE (02:45)
[2020-03-23] MEDS ORDERED: LORazepam 2 MG/ML SDV IVPUSH ONE (02:45)
== END 2020-03-23 03:15 | disposition home or self-care (01) ==
LOC: DL.ED 00:52
DX: R11.11 Vomiting without nausea (principal); F12.90 Cannabis use, unspecified, uncomplicated; R10.12 Left upper quadrant pain; F15.10 Other stimulant abuse, uncomplicated; F17.210 Nicotine dependence, cigarettes, uncomplicated; J44.9 Chronic obstructive pulmonary disease, unspecified
CPT/HCPCS: 36415; 80053; 80305-QW; 80307; 82150; 83690; 85025; 96374; 96375; 99283; 99284-25; C9113; J2060; J2405; J7030

== ENCOUNTER 2020-07-14 10:15 | Emergency (ER) | payer MEDICAID ==
[2020-07-14 10:30] VITALS: BP 89/62; PULSE 90
--- NOTE | 2020-07-14 10:37 | EDM.PDOC ---
ED HPI GENERAL MEDICAL PROBLEM - General Chief Complaint: Genitourinary Problem Stated Complaint: CANT WALK TESTICLE PAIN/PROBLEMS STATED INFECTION Time Seen by Provider: 07/14/20 10:30 Source of Information: Reports: Patient, Old Records, RN, RN Notes Reviewed History Limitations: Reports: No Limitations - History of Present Illness INITIAL COMMENTS - FREE TEXT/NARRATIVE: Pt presents to ER with c/o 2 days duration of pain and swelling to the right testicle, a whitish penile discharge and painful urination. Denies injury or fevers. Pt claims he has not had sex for the last 4 months, but could have been exposed to an STD prior to that. Denies Hx of epididymitis, orchitis, or UTI. Onset Date: 07/12/20 Duration: Constant Location: Reports: Pelvis (G/U) Quality: Reports: Ache, Burning Severity: Severe Improves with: Reports: None Worsens with: Reports: Other (Urination), Movement Associated Symptoms: Reports: No Other Symptoms Right Scrotum Pain Score (Numeric/FACES): 5 - Related Data Allergies Allergy/AdvReac Type Severity Reaction Status Date / Time No Known Allergies Allergy Verified 07/14/20 10:28 Home Meds: Home Meds . [No Known Home Meds] 04/11/19 [History] Past Medical History - Past Health History Medical/Surgical History: Denies Medical/Surgical History HEENT History: Reports: None Cardiovascular History: Reports: Heart Murmur Respiratory History: Reports: Asthma, COPD Gastrointestinal History: Reports: GERD Genitourinary History: Reports: None Musculoskeletal History: Reports: None Neurological History: Reports: None Psychiatric History: Reports: None Endocrine/Metabolic History: Reports: None Hematologic History: Reports: None Immunologic History: Reports: None Oncologic (Cancer) History: Reports: None Dermatologic History: Reports: Other (See Below) Other Dermatologic History: reoccuring boils (axillary hidradenitis) - Infectious Disease History Infectious Disease History: Reports: MRSA - Past Surgical History Head Surgeries/Procedures: Reports: None HEENT Surgical History: Reports: None Cardiovascular Surgical History: Reports: None Respiratory Surgical History: Reports: Other (See Below) Other Respiratory Surgeries/Procedures: had a tube in his chest at GI Surgical History: Reports: None Male Surgical History: Reports: None Musculoskeletal Surgical History: Reports: Other (See Below) Other Musculoskeletal Surgeries/Procedures:: sprained toe Social & Family History - Family History Family Medical History: No Pertinent Family History - Tobacco Use Tobacco Use Status *Q: Current Every Day Tobacco User Years of Tobacco use: 14 Packs/Tins Daily: 1 - Caffeine Use Caffeine Use: Reports: None - Recreational Drug Use Recreational Drug Use: Yes Recreational Drug Type: Reports: Marijuana/Hashish Recreational Drug Use Frequency: Weekly - Living Situation & Occupation Living situation: Reports: with Family Occupation: Employed ED ROS GENERAL - Review of Systems Review Of Systems: Comprehensive ROS is negative, except as noted in HPI. ED EXAM, RENAL/ - Physical Exam Exam: See Below Exam Limited By: No Limitations General Appearance: Alert, WD/WN, No Apparent Distress Eye Exam: Bilateral Eye: Normal Inspection Nose: Normal Inspection Throat/Mouth: Normal Oropharynx, Normal Voice, No Airway Compromise Head: Atraumatic, Normocephalic Neck: Normal Inspection, Non-Tender, Full Range of Motion Respiratory/Chest: No Respiratory Distress, Lungs Clear, Normal Breath Sounds, No Accessory Muscle Use, Chest Non-Tender Cardiovascular: Regular Rate, Rhythm, No Edema GI/Abdominal: Normal Bowel Sounds, Soft, No Organomegaly, No Distention, No Abnormal Bruit, No Mass, Tender (suprapubic). No: Guarding, Rigid, Rebound (Male) Exam: No Hernia, Cremasteric Reflex, Scrotum Tenderness (R), Testicular Tenderness (R), Urethral Discharge. No: Inguinal Lymphadenopathy, Penile Lesions Rectal (Males) Exam: Deferred Back Exam: Normal Inspection, Full Range of Motion. No: CVA Tenderness (L), CVA Tenderness (R) Extremities: Normal Inspection, Normal Range of Motion, Non-Tender, Normal Capillary Refill, No Pedal Edema Neurological: Alert, Oriented, CN II-XII Intact, Normal Cognition, No Motor/Sensory Deficits Psychiatric: Normal Mood Skin Exam: Warm, Dry, Intact Course - Vital Signs Last Recorded V/S: Last Vital Signs Temp 97.2 F 07/14/20 10:28 Pulse 90 07/14/20 10:28 Resp 18 07/14/20 10:28 BP 89/62 L 07/14/20 10:28 Pulse Ox 100 07/14/20 10:28 - Orders/Labs/Meds Orders: Active Orders 24 hr Category Date Time Status Peripheral IV Care [RC] . DIRECTED Care 07/14/20 10:39 Active CULTURE URINE [RM] Stat Lab 07/14/20 12:40 Received STD PANEL 3 [REF] Stat Lab 07/14/20 12:40 Received Sodium Chloride 0.9% [Saline Flush] Med 07/14/20 10:39 Active 10 ml FLUSH ASDIRECTED PRN Peripheral IV Insertion Adult [OM.PC] Stat Oth 07/14/20 10:38 Ordered Medication Orders Sodium Chloride (Sodium Chloride 0.9% 10 Ml Syringe) 10 ml FLUSH ASDIRECTED PRN PRN Reason: Keep Vein Open Last Admin: 07/14/20 11:09 Dose: 10 ml Documented by: ANDREA Labs: Laboratory Tests 07/14/20 07/14/20 07/14/20 Range/Units 10:50 10:50 10:50 WBC 28.9 H* (5.0-10.0) 10^3/uL RBC 5.74 (4.6-6.2) 10^6/uL Hgb 18.1 H (14.0-18.0) g/dL Hct 53.3 (40.0-54.0) % MCV 92.9 (80-100) fL MCH 31.5 (27.0-34.0) pg MCHC 34.0 (33.0-35.0) g/dL Plt Count 236 D (150-450) 10^3/uL Neut % (Auto) 79.2 H (42.2-75.2) % Lymph % (Auto) 12.5 L (20.5-50.1) % [place] % (Auto) 7.9 (2-8) % Eos % (Auto) 0.1 L (1.0-3.0) % Baso % (Auto) 0.3 (0.0-1.0) % Add Manual Diff Yes Neutrophils % (Manual) 75 (42-75) % Band Neutrophils % 6 % Lymphocytes % (Manual) 12 L (20-50) % Monocytes % (Manual) 7 (2-8) % Sodium 140 (136-145) mmol/L Potassium 3.9 (3.5-5.1) mmol/L Chloride 101 (98-107) mmol/L Carbon Dioxide 26 (21-32) mmol/L Anion Gap 16.9 H (7-13) mEq/L BUN 16 (7-18) mg/dL Creatinine 1.26 (0.70-1.30) mg/dL Est Cr Clr Drug Dosing 86.50 mL/min Estimated GFR (MDRD) > 60 BUN/Creatinine Ratio 12.7 (No establ ref range) Glucose 106 H (70-99) mg/dL Lactic Acid 1.5 (0.4-2.0) mmol/L Calcium 9.0 (8.5-10.1) mg/dL Total Bilirubin 0.7 (0.2-1.0) mg/dL AST 8 L (15-37) U/L ALT 18 (16-63) U/L Alkaline Phosphatase 63 (46-116) U/L C-Reactive Protein 23.2 H (0.0-0.9) mg/dL Total Protein 8.2 (6.4-8.2) g/dL Albumin 3.4 (3.4-5.0) g/dL Globulin 4.8 Albumin/Globulin Ratio 0.7 Urine Color (YELLOW) Urine Appearance (CLEAR) Urine pH (5.0-9.0) Ur Specific [place] (1.005-1.030) Urine Protein (NEGATIVE) Urine Glucose (UA) (NEGATIVE) Urine Ketones (NEGATIVE) Urine Occult Blood (NEGATIVE) Urine Nitrite (NEGATIVE) Urine Bilirubin (NEGATIVE) Urine Urobilinogen (0.2-1.0) mg/dL Ur Leukocyte Esterase (NEGATIVE) Urine RBC /HPF Urine WBC (0-5/HPF) /HPF Ur Epithelial Cells (NOT SEEN) /HPF Urine Bacteria (0-FEW/HPF) /HPF Urine Mucus (NOT SEEN) /LPF Urine Opiates Screen (NEGATIVE) Ur Oxycodone Screen (NEGATIVE) Urine Methadone Screen (NEGATIVE) Ur Barbiturates Screen (NEGATIVE) U Tricyclic Antidepress (NEGATIVE) Ur Phencyclidine Scrn (NEGATIVE) Ur Amphetamine Screen (NEGATIVE) U Methamphetamines Scrn (NEGATIVE) Urine MDMA Screen (NEGATIVE) U Benzodiazepines Scrn (NEGATIVE) Urine Cocaine Screen (NEGATIVE) U Marijuana (THC) Screen (NEGATIVE) 07/14/20 07/14/20 Range/Units 12:40 12:40 WBC (5.0-10.0) 10^3/uL RBC (4.6-6.2) 10^6/uL Hgb (14.0-18.0) g/dL Hct (40.0-54.0) % MCV (80-100) fL MCH (27.0-34.0) pg MCHC (33.0-35.0) g/dL Plt Count (150-450) 10^3/uL Neut % (Auto) (42.2-75.2) % Lymph % (Auto) (20.5-50.1) % Haines % (Auto) (2-8) % Eos % (Auto) (1.0-3.0) % Baso % (Auto) (0.0-1.0) % Add Manual Diff Neutrophils % (Manual) (42-75) % Band Neutrophils % % Lymphocytes % (Manual) (20-50) % Monocytes % (Manual) (2-8) % Sodium (136-145) mmol/L Potassium (3.5-5.1) mmol/L Chloride (98-107) mmol/L Carbon Dioxide (21-32) mmol/L Anion Gap (7-13) mEq/L BUN (7-18) mg/dL Creatinine (0.70-1.30) mg/dL Est Cr Clr Drug Dosing mL/min Estimated GFR (MDRD) BUN/Creatinine Ratio (No establ ref range) Glucose (70-99) mg/dL Lactic Acid (0.4-2.0) mmol/L Calcium (8.5-10.1) mg/dL Total Bilirubin (0.2-1.0) mg/dL AST (15-37) U/L ALT (16-63) U/L Alkaline Phosphatase (46-116) U/L C-Reactive Protein (0.0-0.9) mg/dL Total Protein (6.4-8.2) g/dL Albumin (3.4-5.0) g/dL Globulin Albumin/Globulin Ratio Urine Color Yellow (YELLOW) Urine Appearance Slightly cloudy (CLEAR) Urine pH 6.0 (5.0-9.0) Ur Specific [place] 1.015 (1.005-1.030) Urine Protein 30 H (NEGATIVE) Urine Glucose (UA) Negative (NEGATIVE) Urine Ketones Negative (NEGATIVE) Urine Occult Blood Moderate H (NEGATIVE) Urine Nitrite Negative (NEGATIVE) Urine Bilirubin Negative (NEGATIVE) Urine Urobilinogen 1.0 (0.2-1.0) mg/dL Ur Leukocyte Esterase Large H (NEGATIVE) Urine RBC 5-10 H /HPF Urine WBC 30-40 H (0-5/HPF) /HPF Ur Epithelial Cells Rare (NOT SEEN) /HPF Urine Bacteria Moderate H (0-FEW/HPF) /HPF Urine Mucus Not seen (NOT SEEN) /LPF Urine Opiates Screen Positive H (NEGATIVE) Ur Oxycodone Screen Negative (NEGATIVE) Urine Methadone Screen Negative (NEGATIVE) Ur Barbiturates Screen Negative (NEGATIVE) U Tricyclic Antidepress Negative (NEGATIVE) Ur Phencyclidine Scrn Negative (NEGATIVE) Ur Amphetamine Screen Negative (NEGATIVE) U Methamphetamines Scrn Negative (NEGATIVE) Urine MDMA Screen Negative (NEGATIVE) U Benzodiazepines Scrn Negative (NEGATIVE) Urine Cocaine Screen Negative (NEGATIVE) U Marijuana (THC) Screen Positive H (NEGATIVE) Meds: Medications Generic Name Dose Route Start Last Admin Trade Name Freq PRN Reason Stop Dose Admin Sodium Chloride 10 ml 07/14/20 10:39 07/14/20 11:09 Sodium Chloride 0.9% 10 Ml Syringe FLUSH 10 ml ASDIRECTED PRN Administration Keep Vein Open Discontinued Medications Generic Name Dose Route Start Last Admin Trade Name Freq PRN Reason Stop Dose Admin Diphenhydramine HCl 25 mg 07/14/20 10:42 07/14/20 11:08 Diphenhydramine 50 Mg/Ml Sdv IVPUSH 07/14/20 10:43 25 mg ONETIME ONE Administration Doxycycline Monohydrate 100 mg 07/14/20 12:10 07/14/20 12:24 Doxycycline Monohydrate 100 Mg Cap PO 07/14/20 12:11 100 mg ONETIME ONE Administration Hydromorphone HCl 1 mg 07/14/20 10:40 07/14/20 11:08 Hydromorphone 1 Mg/Ml Syringe IVPUSH 07/14/20 10:41 1 mg ONETIME ONE Administration Sodium Chloride 1,000 mls @ 999 mls/hr 07/14/20 10:40 07/14/20 11:07 Normal Saline IV 07/14/20 11:40 999 mls/hr .BOLUS ONE Administration Vancomycin HCl 1 gm/ Sodium 250 mls @ 167 mls/hr 07/14/20 10:41 07/14/20 11:07 Chloride IV 07/14/20 12:10 167 mls/hr ONETIME ONE Administration Sodium Chloride 1,000 mls @ 999 mls/hr 07/14/20 11:31 07/14/20 11:38 Normal Saline IV 07/14/20 12:31 999 mls/hr .BOLUS ONE Administration Ceftriaxone Sodium 2 gm/ 100 mls @ 200 mls/hr 07/14/20 12:09 07/14/20 12:48 Sodium Chloride IV 07/14/20 12:38 200 mls/hr ONETIME ONE Administration Ketorolac Tromethamine 30 mg 07/14/20 10:40 07/14/20 11:07 Ketorolac 30 Mg/Ml Sdv IVPUSH 07/14/20 10:41 30 mg ONETIME ONE Administration Ondansetron HCl 4 mg 07/14/20 10:41 07/14/20 11:08 Ondansetron 4 Mg/2 Ml Sdv IV 07/14/20 10:42 4 mg ONETIME ONE Administration - Radiology Interpretation Free Text/Narrative:: US Scrotum & Contents: asymmetrically prominent/dilated spermatic cord on right, edematous and highly vascular right epididymis, normal symmetrical testis. See Rad. report. Departure - Departure Time of Disposition: 13:24 Disposition: Home, Self-Care 01 Condition: Good Clinical Impression: Epididymitis, right, Urethritis - Discharge Information *PRESCRIPTION DRUG MONITORING PROGRAM REVIEWED*: No *COPY OF PRESCRIPTION DRUG MONITORING REPORT IN PATIENT ANN: No Instructions: Epididymitis, Urethritis, Adult, Sexually Transmitted Disease, [id number] Forms: ED Department Discharge Additional Instructions: Rx: Doxycycline 100mg Rx: Naprosyn 500mg Rx: Hydrocodone APAP 5mg/325mg Drink plenty of water. Rest, elevate scrotum on a pillow, and apply an ice pack. Follow up in clinic in 3 to 5 days for recheck and urine recheck. Return to ER if worse at any time. Sepsis Event Note (ED) - Evaluation Sepsis Screening Result: No Definite Risk - Focused Exam Vital Signs: Vital Signs Temp Pulse Resp BP Pulse Ox 07/14/20 10:28 97.2 F 90 18 89/62 L 100 - My Orders Last 24 Hours: My Active Orders 07/14/20 10:38 Peripheral IV Insertion Adult [OM.PC] Stat 07/14/20 10:39 Peripheral IV Care [RC] . DIRECTED Sodium Chloride 0.9% [Saline Flush] 10 ml FLUSH ASDIRECTED PRN 07/14/20 12:40 CULTURE URINE [RM] Stat STD PANEL 3 [REF] Stat - Assessment/Plan Last 24 Hours: My Active Orders 07/14/20 10:38 Peripheral IV Insertion Adult [OM.PC] Stat 07/14/20 10:39 Peripheral IV Care [RC] . DIRECTED Sodium Chloride 0.9% [Saline Flush] 10 ml FLUSH ASDIRECTED PRN 07/14/20 12:40 CULTURE URINE [RM] Stat STD PANEL 3 [REF] Stat
[2020-07-14] MEDS ORDERED: Sodium Chloride 0.9% 10 ML Syringe FLUSH PRN (10:39)
[2020-07-14] MEDS ORDERED: HYDROmorphone 1 MG/ML Syringe IVPUSH ONE (10:40)
[2020-07-14] MEDS ORDERED: Sodium Chloride 0.9% 1,000 ML IV ONE ×2 (10:40→11:31)
[2020-07-14] MEDS ORDERED: Ketorolac 30 MG/ML SDV IVPUSH ONE (10:40)
[2020-07-14] MEDS ORDERED: Ondansetron 4 MG/2 ML SDV IV ONE (10:41)
[2020-07-14] MEDS ORDERED: diphenhydrAMINE 50 MG/ML SDV IVPUSH ONE (10:42)
[2020-07-14 11:28] LABS: ANION GAP 16.9 mEq/L (7-13); CHLORIDE,CL 101 mmol/L (98-107); SODIUM,NA 140 mmol/L (136-145)
--- NOTE | 2020-07-14 12:01 | US ---
EXAMINATION: Scrotum and Contents SEX: Male AGE: 30 years CLINICAL HISTORY: 30-year-old male with "Rt testicle pain", right scrotal swelling and urethral discharge. INTERPRETATION: Abnormal. 1. Asymmetrically prominent (dilated?) Spermatic cord on the right. 2. Edematous and highly vascular ipsilateral epididymis suggesting inflammation i.e. epididymitis. 3. Symmetric normal testicular size, configuration and homogeneous density. No testicular mass or infarcts. No orchitis. a. Right testicle measures 4.1 cm L x 2.9 cm W x 2.5 cm AP diameter. b. Left testicle measures 3.7 cm L x 3.7 cm W x 2.1 cm AP diameter. 4. No hydroceles.
[2020-07-14] MEDS ORDERED: cefTRIAXone 2 GM in Sodium Chloride 0.9% 100 ML IV ONE (12:09)
[2020-07-14] MEDS ORDERED: Doxycycline Monohydrate 100 MG Cap PO ONE (12:10)
[2020-07-16 12:46] LABS: C.TRACHOMATIS BY TMA Negative (Negative); N.GONORRHOEAE BY TMA Positive (Negative)
== END 2020-07-14 13:50 | disposition home or self-care (01) ==
LOC: DL.ED 10:15
DX: N45.1 Epididymitis (principal); N34.2 Other urethritis; J44.9 Chronic obstructive pulmonary disease, unspecified; Z72.0 Tobacco use
CPT/HCPCS: 36415; 76870; 80053; 80305-QW; 81001; 83605; 85025; 86140; 87086; 87491; 87563; 87591; 96365; 96367; 96375; 99283; 99284-25; A9270-GY; J0696; J1170; J1200; J1885; J2405; J3370; J7030; J7050

== ENCOUNTER 2020-10-11 21:51 | Emergency (ER) | payer MEDICAID ==
[2020-10-11 22:15] VITALS: BP 139/89; PULSE 78
[2020-10-11] MEDS ORDERED: GI Cocktail Oral Solution 30 ML PO ONE (22:26)
[2020-10-11] MEDS ORDERED: Pantoprazole 40 MG Vial IVPUSH ONE (22:26)
[2020-10-11] MEDS ORDERED: Famotidine 20 MG/2 ML SDV IVPUSH ONE (22:26)
[2020-10-11 23:33] LABS: ANION GAP 14.4 mEq/L (7-13); CHLORIDE,CL 103 mmol/L (98-107); SODIUM,NA 144 mmol/L (136-145)
--- NOTE | 2020-10-11 23:37 | EDM.PDOC ---
ED HPI GENERAL MEDICAL PROBLEM - General Chief Complaint: Abdominal Pain Stated Complaint: SEVERE STOMACH PAIN Time Seen by Provider: 10/11/20 23:25 Source of Information: Reports: Patient, RN History Limitations: Reports: No Limitations - History of Present Illness INITIAL COMMENTS - FREE TEXT/NARRATIVE: Epigastric pain since march, worse tonight. Pain worse after eating. Grilled burgers and brautz for supper. Has missed twice for EGD. Taking chewable tabl fro [facility] [employer] once in awhile, helps short time. Omeprazole not helpful so quit taking. No vomiting or diarrhea. Epigastric Pain Score (Numeric/FACES): 4 - Related Data Allergies Allergy/AdvReac Type Severity Reaction Status Date / Time No Known Allergies Allergy Verified 10/11/20 22:15 Home Meds: Home Meds Pantoprazole Sodium [Protonix] 40 mg PO DAILY 08/24/20 [History] Past Medical History - Past Health History Medical/Surgical History: Denies Medical/Surgical History HEENT History: Reports: None Cardiovascular History: Reports: Heart Murmur Respiratory History: Reports: Asthma, COPD Gastrointestinal History: Reports: GERD Genitourinary History: Reports: None Musculoskeletal History: Reports: None Neurological History: Reports: None Psychiatric History: Reports: None Endocrine/Metabolic History: Reports: None Hematologic History: Reports: None Immunologic History: Reports: None Oncologic (Cancer) History: Reports: None Dermatologic History: Reports: Other (See Below) Other Dermatologic History: reoccuring boils (axillary hidradenitis) - Infectious Disease History Infectious Disease History: Reports: MRSA - Past Surgical History Head Surgeries/Procedures: Reports: None HEENT Surgical History: Reports: None Cardiovascular Surgical History: Reports: None Respiratory Surgical History: Reports: Other (See Below) Other Respiratory Surgeries/Procedures: had a tube in his chest at GI Surgical History: Reports: None Male Surgical History: Reports: None Musculoskeletal Surgical History: Reports: Other (See Below) Other Musculoskeletal Surgeries/Procedures:: sprained toe Social & Family History - Family History Family Medical History: No Pertinent Family History - Tobacco Use Tobacco Use Status *Q: Current Every Day Tobacco User Years of Tobacco use: 14 Packs/Tins Daily: 0.7 Second Hand Smoke Exposure: Yes - Caffeine Use Caffeine Use: Reports: None - Recreational Drug Use Recreational Drug Use: Yes Drug Use in Last 12 Months: Yes Recreational Drug Type: Reports: Marijuana/Hashish - Living Situation & Occupation Living situation: Reports: with Family Occupation: Employed ED ROS GENERAL - Review of Systems Review Of Systems: Comprehensive ROS is negative, except as noted in HPI. ED EXAM, GI/ABD - Physical Exam Exam: See Below Exam Limited By: No Limitations General Appearance: Alert, Mild Distress, Thin Eyes: Bilateral: EOMI Ears: Normal External Exam Nose: Normal Inspection Throat/Mouth: Normal Inspection Head: Atraumatic, Normocephalic Neck: Normal Inspection Respiratory/Chest: No Respiratory Distress, Normal Breath Sounds Cardiovascular: Normal Peripheral Pulses, Regular Rate, Rhythm GI/Abdominal Exam: Normal Bowel Sounds, Soft, No Distention, Tender (epigastric). No: Distended, Guarding, Abnormal Bowel Sounds Extremities: Normal Inspection Neurological: Alert, Oriented Skin Exam: Warm, Dry, Intact, Normal Color Course - Vital Signs Last Recorded V/S: Last Vital Signs Temp 98.1 F 10/11/20 22:09 Pulse 78 10/11/20 22:09 Resp 18 10/11/20 22:09 BP 139/89 10/11/20 22:09 Pulse Ox 98 10/11/20 22:09 - Orders/Labs/Meds Orders: Active Orders 24 hr Category Date Time Status AMYLASE [CHEM] Stat Lab 10/11/20 23:18 Ordered CBC WITH AUTO DIFF [HEME] Stat Lab 10/11/20 23:18 Ordered COMPREHENSIVE METABOLIC PN,CMP [CHEM] Stat Lab 10/11/20 23:18 Ordered CULTURE URINE [RM] Stat Lab 10/11/20 22:22 Received LIPASE [CHEM] Stat Lab 10/11/20 23:18 Ordered Labs: Laboratory Tests 10/11/20 10/11/20 Range/Units 22:22 22:22 Urine Color Yellow (YELLOW) Urine Appearance Slightly cloudy (CLEAR) Urine pH 7.0 (5.0-9.0) Ur Specific [place] >= 1.030 (1.005-1.030) Urine Protein Negative (NEGATIVE) Urine Glucose (UA) Negative (NEGATIVE) Urine Ketones Negative (NEGATIVE) Urine Occult Blood Trace-intact H (NEGATIVE) Urine Nitrite Negative (NEGATIVE) Urine Bilirubin Negative (NEGATIVE) Urine Urobilinogen 1.0 (0.2-1.0) mg/dL Ur Leukocyte Esterase Small H (NEGATIVE) Urine RBC Not seen /HPF Urine WBC Semi-packed H (0-5/HPF) /HPF Ur Epithelial Cells Moderate H (NOT SEEN) /HPF Urine Bacteria Many H (0-FEW/HPF) /HPF Urine Opiates Screen Negative (NEGATIVE) Ur Oxycodone Screen Negative (NEGATIVE) Urine Methadone Screen Negative (NEGATIVE) Ur Barbiturates Screen Negative (NEGATIVE) U Tricyclic Antidepress Negative (NEGATIVE) Ur Phencyclidine Scrn Negative (NEGATIVE) Ur Amphetamine Screen Negative (NEGATIVE) U Methamphetamines Scrn Negative (NEGATIVE) Urine MDMA Screen Negative (NEGATIVE) U Benzodiazepines Scrn Negative (NEGATIVE) Urine Cocaine Screen Negative (NEGATIVE) U Marijuana (THC) Screen Positive H (NEGATIVE) Meds: Medications Discontinued Medications Generic Name Dose Route Start Last Admin Trade Name Freq PRN Reason Stop Dose Admin Al Hydroxide/Mg Hydroxide 30 ml 10/11/20 22:26 10/11/20 23:01 Gi Cocktail Oral Solution 30 Ml PO 10/11/20 22:27 30 ml ONETIME ONE Administration Famotidine 20 mg 10/11/20 22:26 10/11/20 22:50 Famotidine 20 Mg/2 Ml Sdv IVPUSH 10/11/20 22:27 20 mg ONETIME ONE Administration Pantoprazole Sodium 80 mg 10/11/20 22:26 10/11/20 22:55 Pantoprazole 40 Mg Vial IVPUSH 10/11/20 22:27 80 mg .BOLUS ONE Administration Departure - Departure Time of Disposition: 23:38 Disposition: Home, Self-Care 01 Condition: Good Clinical Impression: Epigastric pain - Discharge Information *PRESCRIPTION DRUG MONITORING PROGRAM REVIEWED*: No *COPY OF PRESCRIPTION DRUG MONITORING REPORT IN PATIENT ANN: No Instructions: Gastritis, Adult, [id number] Additional Instructions: omeproazole 20mg twice daily one week then one time daily take medication on empty stomach bland low fat diet avoid greasy spicy food small portions more frequently avoid alcohol smoking clinic follow up next week Sepsis Event Note (ED) - Evaluation Sepsis Screening Result: No Definite Risk - Focused Exam Vital Signs: Vital Signs Temp Pulse Resp BP Pulse Ox 10/11/20 22:09 98.1 F 78 18 139/89 98 - My Orders Last 24 Hours: My Active Orders 10/11/20 22:22 CULTURE URINE [RM] Stat 10/11/20 23:18 AMYLASE [CHEM] Stat CBC WITH AUTO DIFF [HEME] Stat COMPREHENSIVE METABOLIC PN,CMP [CHEM] Stat LIPASE [CHEM] Stat - Assessment/Plan Last 24 Hours: My Active Orders 10/11/20 22:22 CULTURE URINE [RM] Stat 10/11/20 23:18 AMYLASE [CHEM] Stat CBC WITH AUTO DIFF [HEME] Stat COMPREHENSIVE METABOLIC PN,CMP [CHEM] Stat LIPASE [CHEM] Stat
== END 2020-10-11 23:48 | disposition home or self-care (01) ==
LOC: DL.ED 21:51
DX: R10.13 Epigastric pain (principal); J44.9 Chronic obstructive pulmonary disease, unspecified; K21.9 Gastro-esophageal reflux disease without esophagitis; Z72.0 Tobacco use; Z79.899 Other long term (current) drug therapy
CPT/HCPCS: 36415; 80053; 80305; 81001; 82150; 83690; 85025; 87086; 96374; 96375; 99284; A9270; C9113; J3490; 87088

== ENCOUNTER 2021-01-06 02:49 | Emergency (ER) | payer MEDICAID ==
--- NOTE | 2021-01-06 02:47 | EDM.PDOC ---
ED HPI GENERAL MEDICAL PROBLEM - General Stated Complaint: AMBULANCE Time Seen by Provider: 01/06/21 02:46 Source of Information: Reports: Patient, EMS, Old Records, RN, RN Notes Reviewed History Limitations: Reports: No Limitations - History of Present Illness INITIAL COMMENTS - FREE TEXT/NARRATIVE: Trent is a 30 y/o male who presents to the ED via [facility] with complaints of RUQ abdominal pain, nausea, and vomiting. The patient reports his pain began abruptly approximately 30 minutes ago, originating n the midepigastric/RUQ region and radiates into his back. He is unable to characterize the pain but rates it 10/10 constant pain. He feels the pain makes it difficult to breath deeply. He denies history of pain similar to this. He denies recent illness, fever, shaking, chills, chest pain, palpitations, diarrhea, constipation, dysuria, or hematuria. He has taken no medications or performed any supportive cares for his symptoms. The patient attest to smoking 1/2 pack of tobacco a day as well as daily marijuana use; he attests to drinking large quantities of vodka tonight. Review of the patient's records reveals he has been prescribed omeprazole which he stopped as he felt it was not helping his symptoms. Additionally, he has been set up for multiple EGDs which he has not received due to patient cancelations. Bilateral Upper Abdomen Pain Score (Numeric/FACES): 10 - Related Data Allergies Allergy/AdvReac Type Severity Reaction Status Date / Time No Known Allergies Allergy Verified 01/06/21 02:49 Home Meds: Home Meds Pantoprazole Sodium [Protonix] 40 mg PO DAILY 08/24/20 [History] Albuterol [Ventolin HFA] 18 gm IH PRN 01/06/21 [History] Past Medical History - Past Health History Medical/Surgical History: Denies Medical/Surgical History HEENT History: Reports: None Cardiovascular History: Reports: Heart Murmur Respiratory History: Reports: Asthma, COPD Gastrointestinal History: Reports: GERD Genitourinary History: Reports: None Musculoskeletal History: Reports: None Neurological History: Reports: None Psychiatric History: Reports: None Endocrine/Metabolic History: Reports: None Hematologic History: Reports: None Immunologic History: Reports: None Oncologic (Cancer) History: Reports: None Dermatologic History: Reports: Other (See Below) Other Dermatologic History: reoccuring boils (axillary hidradenitis) - Infectious Disease History Infectious Disease History: Reports: MRSA - Past Surgical History Head Surgeries/Procedures: Reports: None HEENT Surgical History: Reports: None Cardiovascular Surgical History: Reports: None Respiratory Surgical History: Reports: Other (See Below) Other Respiratory Surgeries/Procedures: had a tube in his chest at GI Surgical History: Reports: None Male Surgical History: Reports: None Musculoskeletal Surgical History: Reports: Other (See Below) Other Musculoskeletal Surgeries/Procedures:: sprained toe Dermatological Surgical History: Reports: None Social & Family History - Family History Family Medical History: No Pertinent Family History - Caffeine Use Caffeine Use: Reports: None - Living Situation & Occupation Living situation: Reports: with Family Occupation: Employed ED ROS GENERAL - Review of Systems Review Of Systems: Comprehensive ROS is negative, except as noted in HPI. ED EXAM, GI/ABD - Physical Exam Exam: See Below Exam Limited By: Intoxication General Appearance: Alert, Moderate Distress (Pain to RUQ). No: Active Emesis Eyes: Bilateral: Normal Appearance (Injected conjunctiva) Ears: Normal External Exam, Hearing Grossly Normal Nose: Normal Inspection, Normal Mucosa Throat/Mouth: Normal Voice, No Airway Compromise. No: Normal Teeth (Poor dentition), Normal Oropharynx (Dry mucous membranes) Head: Atraumatic, Normocephalic Neck: Normal Inspection, Full Range of Motion Respiratory/Chest: No Respiratory Distress, Lungs Clear, Normal Breath Sounds, No Accessory Muscle Use, Chest Non-Tender. No: Crackles, Rales, Rhonchi, Wheezing, Stridor Cardiovascular: Normal Peripheral Pulses, Regular Rate, Rhythm, No Gallop, No Murmur, No Rub, Tachycardia GI/Abdominal Exam: Normal Bowel Sounds, Soft, Non-Tender (Nontender to palpation), No Distention, No Abnormal Bruit, Pelvis Stable. No: Guarding, Rigid, Rebound (Male) Exam: Deferred Rectal (Males) Exam: Deferred Back Exam: Normal Inspection, Full Range of Motion. No: CVA Tenderness (L), CVA Tenderness (R) Extremities: Normal Inspection, Normal Range of Motion, Normal Capillary Refill Neurological: Alert, Oriented, CN II-XII Intact, Normal Cognition, Normal Gait, No Motor/Sensory Deficits Psychiatric: Normal Affect, Normal Mood Skin Exam: Warm, Intact, Normal Color, No Rash, Diaphoretic. No: Cyanosis, Jaundice, Mottled, Pallor Course - Vital Signs Last Recorded V/S: Last Vital Signs Temp 97.4 F 01/06/21 02:51 Pulse 94 01/06/21 04:30 Resp 18 01/06/21 04:30 BP 149/83 H 01/06/21 04:30 Pulse Ox 97 01/06/21 04:30 - Orders/Labs/Meds Labs: Laboratory Tests 01/06/21 01/06/21 01/06/21 Range/Units 02:50 02:50 02:50 WBC 17.1 H (5.0-10.0) 10^3/uL RBC 5.41 (4.6-6.2) 10^6/uL Hgb 17.3 (14.0-18.0) g/dL Hct 51.1 (40.0-54.0) % MCV 94.5 (80-100) fL MCH 32.0 (27.0-34.0) pg MCHC 33.9 (33.0-35.0) g/dL Plt Count 303 (150-450) 10^3/uL Neut % (Auto) 65.5 (42.2-75.2) % Lymph % (Auto) 26.2 (20.5-50.1) % [place] % (Auto) 7.2 (2-8) % Eos % (Auto) 0.9 L (1.0-3.0) % Baso % (Auto) 0.2 (0.0-1.0) % Sodium 142 (136-145) mmol/L Potassium 3.3 L (3.5-5.1) mmol/L Chloride 102 (98-107) mmol/L Carbon Dioxide 26 (21-32) mmol/L Anion Gap 17.3 H (7-13) mEq/L BUN 10 (7-18) mg/dL Creatinine 0.92 (0.70-1.30) mg/dL Est Cr Clr Drug Dosing 118.47 mL/min Estimated GFR (MDRD) > 60 BUN/Creatinine Ratio 10.9 (No establ ref range) Glucose 108 H (70-99) mg/dL Lactic Acid 3.0 H* (0.4-2.0) mmol/L Calcium 8.3 L (8.5-10.1) mg/dL Magnesium 2.3 (1.8-2.4) mg/dL Total Bilirubin 0.3 (0.2-1.0) mg/dL AST 18 (15-37) U/L ALT 23 (16-63) U/L Alkaline Phosphatase 75 (46-116) U/L C-Reactive Protein 0.5 (0.0-0.9) mg/dL Total Protein 7.9 (6.4-8.2) g/dL Albumin 3.7 (3.4-5.0) g/dL Globulin 4.2 Albumin/Globulin Ratio 0.9 Amylase 46 (25-115) U/L Lipase 118 (73-393) U/L Ethyl Alcohol 72 (0) mg/dL Meds: Medications Discontinued Medications Generic Name Dose Route Start Last Admin Trade Name Freq PRN Reason Stop Dose Admin Al Hydroxide/Mg Hydroxide 30 ml 01/06/21 03:46 01/06/21 03:53 Gi Cocktail Oral Solution 30 Ml PO 01/06/21 03:47 30 ml ONETIME ONE Administration Fentanyl 50 mcg 01/06/21 05:13 01/06/21 05:15 Fentanyl 100 Mcg/2 Ml Sdv IVPUSH 01/06/21 05:14 50 mcg ONETIME ONE Administration Fentanyl Confirm 01/06/21 05:13 01/06/21 05:50 Fentanyl 100 Mcg/2 Ml Sdv Administered 01/06/21 05:14 Not Given Dose 100 mcg .ROUTE .STK-MED ONE Hydromorphone HCl 1 mg 01/06/21 03:04 01/06/21 03:13 Hydromorphone 1 Mg/Ml Syringe IVPUSH 01/06/21 03:05 1 mg ONETIME ONE Administration Hydromorphone HCl 1 mg 01/06/21 04:44 01/06/21 04:48 Hydromorphone 1 Mg/Ml Syringe IVPUSH 01/06/21 04:45 1 mg ONETIME ONE Administration Hydromorphone HCl 1 mg 01/06/21 05:28 01/06/21 05:36 Hydromorphone 1 Mg/Ml Syringe IVPUSH 01/06/21 05:29 1 mg ONETIME ONE Administration Lactated Ringer's 1,000 mls @ 999 mls/hr 01/06/21 03:30 01/06/21 03:37 Ringers, Lactated IV 01/06/21 04:30 999 mls/hr .BOLUS ONE Administration Pantoprazole Sodium 40 mg/ 100 mls @ 200 mls/hr 01/06/21 03:58 01/06/21 05:20 Sodium Chloride IV 01/06/21 04:27 200 mls/hr ONETIME ONE Administration Piperacillin Sod/Tazobactam 100 mls @ 200 mls/hr 01/06/21 04:58 01/06/21 05:40 Sod 3.375 gm/ Sodium Chloride IV 01/06/21 05:27 200 mls/hr ONETIME ONE Administration Pantoprazole Sodium 40 mg/ 100 mls @ 20 mls/hr 01/06/21 05:04 Sodium Chloride IV .CONTINUOS LIA Sodium Chloride Confirm 01/06/21 05:26 Normal Saline Administered 01/06/21 05:27 Dose 100 mls @ as directed .ROUTE .STK-MED ONE Iopamidol 100 ml 01/06/21 03:41 01/06/21 04:31 Iopamidol 612 Mg/Ml 100 Ml Bottle IVPUSH 01/06/21 03:42 75 ml ONETIME ONE Administration Metoclopramide HCl 10 mg 01/06/21 03:04 01/06/21 03:09 Metoclopramide 10 Mg/2 Ml Sdv IVPUSH 01/06/21 03:05 10 mg ONETIME ONE Administration Pantoprazole Sodium 40 mg 01/06/21 04:02 01/06/21 03:50 Pantoprazole 40 Mg Vial IVPUSH 01/06/21 04:03 40 mg ONETIME ONE Administration Piperacillin Sod/Tazobactam Sod Confirm 01/06/21 05:24 01/06/21 05:50 Piperacillin/Tazobactam 3.375 Gm Vial Administered 01/06/21 05:25 Not Given Dose 3.375 gm .ROUTE .STK-MED ONE - Radiology Interpretation Free Text/Narrative:: [facility] Final Radiology Report Call: [phone] assistance Online chat: [email or web address] Name: TRENT MCLEAN Age: 30Years M Date: 01/06/2021 SSN: -- : [id number] Study: CT ABDOMEN PELVIS W CONT Requesting Physician: Mechelle Pena Images: [id number] Addl Studies: Provided Clinical History: Abrupt onset RUQ pain; Nausea and vomiting Contrast: With Contrast Medium: Isovue 300 Contrast Amount: 75 mL Contrast Method: Intravenous (IV) Page 1 of 2 PROCEDURE INFORMATION: Exam: CT Abdomen And Pelvis With Contrast Exam date and time: 01/06/2021 4:15 AM Age: 30 years old Clinical indication: Other: Abrupt onset ruq pain; Nausea and vomiting TECHNIQUE: Imaging protocol: Computed tomography of the abdomen and pelvis with contrast. Radiation optimization: All CT scans at this facility use at least one of these dose optimization techniques: automated exposure control; mA and/or kV adjustment per patient size (includes targeted exams where dose is matched to clinical indication); or iterative reconstruction. Contrast material: ISOVUE 300; Contrast volume: 75 ml; Contrast route: INTRAVENOUS (IV); COMPARISON: CT Chest Abdomen Pelvis w Cont 03/11/2020 5:37 PM FINDINGS: Liver: Normal. No mass. Gallbladder and bile ducts: Normal. No calcified stones. No ductal dilation. Pancreas: Normal. No ductal dilation. Spleen: Normal. No splenomegaly. Adrenal glands: Normal. No mass. Kidneys and ureters: Normal. No hydronephrosis. Stomach and bowel: Severe gastric wall edema with probable perforated gastric ulcer involving the gastric antrum Appendix: No evidence of appendicitis. Intraperitoneal space: Large pneumoperitoneum. Small free fluid in the pelvis. Vasculature: Unremarkable. No abdominal aortic aneurysm. Lymph nodes: Unremarkable. No enlarged lymph nodes. Urinary bladder: Unremarkable as visualized. Reproductive: Unremarkable as visualized. Bones/joints: Unremarkable. No acute fracture. Soft tissues: Unremarkable. IMPRESSION: Large pneumoperitoneum most likely related to a perforated gastric ulcer involving the antrum of the stomach. Thank you for allowing us to participate in the care of your patient. Dictated and Authenticated by: Phillip Batista MD 01/06/2021 4:41 AM Central Time ([place] & [place]) - Re-Assessments/Exams Free Text/Narrative Re-Assessment/Exam: 01/06/21 Dilaudid 1mg IVP and Reglan 10mg IVP administered while labs pending. Findings of examination and lab work reviewed with patient. Will obtain CT abdomen/pelvis. Patient verbalized understanding and agreement with the plan of care. GI Cocktail administered. CT abdomen/pelvis obtained. LR 1L bolus administered. Protonix 40mg IVPB administered. Dilaudid 1mg IVP administered. Case discussed with Dr. Garcia, general surgeon at [facility], who kindly accepted patient for transfer. Findings of imaging and discussion with Dr. Garcia reviewed with patient. Patient verbalized understanding and agreement with the plan of care. Zosyn 3.375mg and Protonix gtt initiated. Departure - Departure Time of Disposition: 05:57 Disposition: DC/Tfer to [facility] 02 Condition: Serious Clinical Impression: Pneumoperitoneum Perforated gastric ulcer Qualifiers: Gastric ulcer chronicity: acute Qualified Code(s): K25.1 - Acute gastric ulcer with perforation - Discharge Information Referrals: PCP,None [Primary Care Provider] - Forms: Interfacility Transfer [facility] Sepsis Event Note (ED) - Focused Exam Vital Signs: Vital Signs Temp Pulse Resp BP Pulse Ox 01/06/21 04:30 94 18 149/83 H 97 01/06/21 03:16 95 18 139/91 H 95 01/06/21 02:51 97.4 F 106 H 22 H 152/104 H 96
[2021-01-06] MEDS ORDERED: HYDROmorphone 1 MG/ML Syringe IVPUSH ONE ×3 (03:04→05:28)
[2021-01-06] MEDS ORDERED: Metoclopramide 10 MG/2 ML SDV IVPUSH ONE (03:04)
[2021-01-06 03:23] LABS: ANION GAP 17.3 mEq/L (7-13); CHLORIDE,CL 102 mmol/L (98-107); SODIUM,NA 142 mmol/L (136-145)
[2021-01-06] MEDS ORDERED: Lactated Ringers 1,000 ML IV ONE (03:30)
[2021-01-06] MEDS ORDERED: GI Cocktail Oral Solution 30 ML PO ONE (03:46)
[2021-01-06] MEDS: Iopamidol 612 MG/ML 100 ML Bottle IVPUSH ONE ×2 (03:50→04:31)
[2021-01-06] MEDS ORDERED: Pantoprazole 40 MG in Sodium Chloride 0.9% 100 ML IV ONE (03:58)
[2021-01-06] MEDS ORDERED: Pantoprazole 40 MG Vial IVPUSH ONE (04:02)
[2021-01-06 04:31] VITALS: BP 149/83; PULSE 94
--- NOTE | 2021-01-06 04:41 | CT ---
PROCEDURE INFORMATION: Exam: CT Abdomen And Pelvis With Contrast Exam date and time: 01/06/2021 4:15 AM Age: 30 years old Clinical indication: Other: Abrupt onset ruq pain; Nausea and vomiting TECHNIQUE: Imaging protocol: Computed tomography of the abdomen and pelvis with contrast. Radiation optimization: All CT scans at this facility use at least one of these dose optimization techniques: automated exposure control; mA and/or kV adjustment per patient size (includes targeted exams where dose is matched to clinical indication); or iterative reconstruction. Contrast material: ISOVUE 300; Contrast volume: 75 ml; Contrast route: INTRAVENOUS (IV); COMPARISON: CT Chest Abdomen Pelvis w Cont 03/11/2020 5:37 PM FINDINGS: Liver: Normal. No mass. Gallbladder and bile ducts: Normal. No calcified stones. No ductal dilation. Pancreas: Normal. No ductal dilation. Spleen: Normal. No splenomegaly. Adrenal glands: Normal. No mass. Kidneys and ureters: Normal. No hydronephrosis. Stomach and bowel: Severe gastric wall edema with probable perforated gastric ulcer involving the gastric antrum Appendix: No evidence of appendicitis. Intraperitoneal space: Large pneumoperitoneum. Small free fluid in the pelvis. Vasculature: Unremarkable. No abdominal aortic aneurysm. Lymph nodes: Unremarkable. No enlarged lymph nodes. Urinary bladder: Unremarkable as visualized. Reproductive: Unremarkable as visualized. Bones/joints: Unremarkable. No acute fracture. Soft tissues: Unremarkable. IMPRESSION: Large pneumoperitoneum most likely related to a perforated gastric ulcer involving the antrum of the stomach.
[2021-01-06] MEDS ORDERED: Piperacillin/Tazobactam 3.375 GM in Sodium Chloride 0.9% 100 ML IV ONE (04:58)
[2021-01-06] MEDS ORDERED: Pantoprazole 40 MG in Sodium Chloride 0.9% 100 ML IV SCH (05:04)
[2021-01-06] MEDS ORDERED: fentaNYL 100 MCG/2 ML SDV IVPUSH ONE (05:13)
[2021-01-06] MEDS ORDERED: fentaNYL 100 MCG/2 ML SDV ONE (05:13)
[2021-01-06] MEDS ORDERED: Sodium Chloride 0.9% 100 ML ONE (05:26)
== END 2021-01-06 05:42 ==
LOC: DL.ED 02:49
DX: K25.1 Acute gastric ulcer with perforation (principal); K66.8 Other specified disorders of peritoneum; J44.9 Chronic obstructive pulmonary disease, unspecified; Z79.899 Other long term (current) drug therapy
CPT/HCPCS: 36415; 74177; 80053; 80307; 82150; 83605; 83690; 83735; 85025; 86140; 96365; 96375; 96376; 99285-25; A9270-GY; C9113; J1170; J2543; J2765; J3010; J7120; Q9967

== ENCOUNTER 2021-09-06 15:36 | Emergency (ER) | payer MEDICAID ==
[2021-09-06 15:52] VITALS: BP 130/84; PULSE 81
[2021-09-06 16:37] LABS: CORONAVIRUS COVID-19 NAA NEGATIVE (NEGATIVE); RESPIRATORY SYNCYTIAL VIR NAA NEGATIVE (NEGATIVE)
== END 2021-09-06 17:15 | disposition home or self-care (01) ==
LOC: DL.ED 15:36
DX: J06.9 Acute upper respiratory infection, unspecified (principal); J44.9 Chronic obstructive pulmonary disease, unspecified; K21.9 Gastro-esophageal reflux disease without esophagitis; Z79.899 Other long term (current) drug therapy; Z20.822 Contact with and (suspected) exposure to COVID-19
CPT/HCPCS: 0241U; 99283

== ENCOUNTER 2021-09-21 12:27 | Emergency (ER) | payer MEDICAID ==
[2021-09-21 12:48] VITALS: BP 131/86; PULSE 98
[2021-09-21] MEDS ORDERED: Sodium Chloride 0.9% 10 ML Syringe FLUSH PRN (14:15)
[2021-09-21] MEDS ORDERED: HYDROmorphone 1 MG/ML Syringe IVPUSH ONE (14:15)
== END 2021-09-21 15:40 | disposition home or self-care (01) ==
LOC: DL.ED 12:27
DX: S62.312A Displaced fracture of base of third metacarpal bone, right hand, initial encounter for closed fracture (principal); J44.9 Chronic obstructive pulmonary disease, unspecified; K21.9 Gastro-esophageal reflux disease without esophagitis; Z79.899 Other long term (current) drug therapy; Y09 Assault by unspecified means
CPT/HCPCS: 29125; 73120; 73130; 96374; 99283; J1170

== ENCOUNTER 2021-09-29 13:29 | Emergency (ER) | payer MEDICAID ==
[2021-09-29 13:43] VITALS: BP 153/105; PULSE 75
[2021-09-29] MEDS ORDERED: GI Cocktail Oral Solution 30 ML PO ONE (13:47)
[2021-09-29] MEDS ORDERED: Ondansetron 4 MG/2 ML SDV IVPUSH ONE (13:49)
[2021-09-29] MEDS: Sodium Chloride 0.9% 10 ML Syringe FLUSH PRN ×2 (14:00→14:56)
[2021-09-29 14:22] LABS: CHLORIDE,CL 100 mmol/L (98-107); SODIUM,NA 141 mmol/L (136-145)
[2021-09-29 14:34] LABS: ESTIMATED GFR 119 mL/min (>=60)
[2021-09-29] MEDS ORDERED: Pantoprazole 40 MG Vial IVPUSH ONE (14:47)
== END 2021-09-29 15:37 | disposition home or self-care (01) ==
LOC: DL.ED 13:29
DX: K29.00 Acute gastritis without bleeding (principal); K21.9 Gastro-esophageal reflux disease without esophagitis; F17.210 Nicotine dependence, cigarettes, uncomplicated; Z79.899 Other long term (current) drug therapy
CPT/HCPCS: 36415; 80053; 82150; 83690; 85025; 86140; 96374; 96375; 99284; A9270; C9113; J2405; J3490

== ENCOUNTER 2023-01-08 05:51 | Emergency (ER) | payer MEDICAID ==
[2023-01-08 06:38] VITALS: BP 160/98; PULSE 66
[2023-01-08] MEDS ORDERED: Sodium Chloride 0.9% 10 ML Syringe FLUSH PRN (06:44)
[2023-01-08] MEDS ORDERED: Lactated Ringers 1,000 ML IV ONE (06:45)
[2023-01-08] MEDS ORDERED: Ondansetron 4 MG/2 ML SDV IVPUSH ONE (06:46)
[2023-01-08 06:51] LABS: BASOPHILS PERCENT AUTO 0.4 % (0.0-1.0); EOSINOPHILS PERCENT AUTO 0.4 % (1.0-3.0); HEMATOCRIT 51.7 % (40.0-54.0); HEMOGLOBIN 18.1 g/dL (14.0-18.0); LYMPHOCYTES PERCENT AUTO 18.9 % (20.5-50.1); MEAN CORPUSCULAR HEMOGLOBIN 33.7 pg (27.0-34.0); MEAN CORPUSCULAR VOLUME 96.3 fL (80-100); MONOCYTES PERCENT AUTO 9.8 % (2-8); NEUTROPHILS PERCENT AUTO 70.5 % (42.2-75.2); PLATELET COUNT,PLT 220 10^3/uL (150-450); RED BLOOD CELL COUNT 5.37 10^6/uL (4.6-6.2); WHITE BLOOD CELL COUNT,WBC 13.4 10^3/uL (5.0-10.0)
[2023-01-08] MEDS ORDERED: Famotidine 20 MG/2 ML SDV IVPUSH ONE (07:02)
[2023-01-08] MEDS ORDERED: Ondansetron 4 MG/2 ML SDV IV ONE (07:02)
[2023-01-08] MEDS ORDERED: Sucralfate Suspension 1 GM/10 ML Cup PO ONE (07:03)
[2023-01-08 07:06] LABS: A/G RATIO 0.9; ALBUMIN 3.6 g/dL (3.4-5.0); ANION GAP 10.4 mEq/L (7-13); BILIRUBIN TOTAL 0.8 mg/dL (0.2-1.0); CALCIUM 9.7 mg/dL (8.5-10.1); CREATININE 0.91 mg/dL (0.70-1.30); EST CRCL DRUG DOSING (CG) 123.36 mL/min; POTASSIUM,K 3.4 mmol/L (3.5-5.1); PROTEIN TOTAL,TP 7.4 g/dL (6.4-8.2)
[2023-01-08] MEDS ORDERED: Promethazine 25 MG/ML SDV IM ONE (07:09)
[2023-01-08] MEDS ORDERED: Sodium Chloride 0.9% 1,000 ML IV ONE (07:24)
[2023-01-08] MEDS ORDERED: Pantoprazole 40 MG Vial IVPUSH ONE (07:25)
[2023-01-08] MEDS ORDERED: HYDROmorphone 0.5 MG/0.5 ML Syringe IVPUSH ONE (07:25)
[2023-01-08 07:28] LABS: APPEARANCE,URINE CLEAR (CLEAR); BILIRUBIN,URINE NEGATIVE (NEGATIVE); COLOR,URINE YELLOW (YELLOW); GLUCOSE,URINE NEGATIVE (NEGATIVE); KETONES,URINE NEGATIVE (NEGATIVE); LEUKOCYTE ESTERASE,URINE TRACE (NEGATIVE); NITRITE,URINE NEGATIVE (NEGATIVE); OCCULT BLOOD,URINE TRACE-INTACT (NEGATIVE); PH,URINE 6.5 (5.0-9.0); PROTEIN,URINE >=300 (NEGATIVE); UROBILINOGEN,URINE 0.2 mg/dL (0.2-1.0)
[2023-01-08 07:29] LABS: AMPHETAMINES,URINE NEGATIVE (NEGATIVE); BARBITURATES,URINE NEGATIVE (NEGATIVE); BENZODIAZEPINE,URINE NEGATIVE (NEGATIVE); MDMA (ECSTASY), URINE NEGATIVE (NEGATIVE); METHADONE,URINE NEGATIVE (NEGATIVE); METHAMPHETAMINES,URINE NEGATIVE (NEGATIVE); OPIATES,URINE NEGATIVE (NEGATIVE); OXYCODONE,URINE NEGATIVE (NEGATIVE); PHENCYCLIDINE,URINE NEGATIVE (NEGATIVE); TCA,URINE NEGATIVE (NEGATIVE)
[2023-01-08] MEDS ORDERED: Haloperidol Lactate 5 MG/ML SDV IVPUSH ONE (07:32)
[2023-01-08 07:37] LABS: BACTERIA,URINE RARE /HPF (0-FEW/HPF); EPITHELIAL CELLS,URINE RARE /HPF (NOT SEEN); MUCUS,URINE FEW /LPF (NOT SEEN); RBC,URINE 0-5 /HPF (0-5)
== END 2023-01-08 09:02 | disposition home or self-care (01) ==
LOC: DL.ED 05:51
DX: R10.13 Epigastric pain (principal); R11.2 Nausea with vomiting, unspecified; F17.210 Nicotine dependence, cigarettes, uncomplicated; J44.9 Chronic obstructive pulmonary disease, unspecified; K21.9 Gastro-esophageal reflux disease without esophagitis; Z79.899 Other long term (current) drug therapy
CPT/HCPCS: 36415; 80053; 80305-QW; 81001; 83735; 85025; 87086; 96361; 96372; 96374; 96375; 96376; 99283; 99284-25; A9270-GY; C9113; J1170; J1630; J2405; J2550; J3490; J7030; J7120

== ENCOUNTER 2023-01-09 06:59 | Emergency (ER) | payer MEDICAID ==
[2023-01-09] MEDS ORDERED: Sodium Chloride 0.9% 10 ML Syringe FLUSH PRN (07:12)
[2023-01-09] MEDS ORDERED: Sodium Chloride 0.9% 1,000 ML IV ONE (07:12)
[2023-01-09] MEDS ORDERED: diphenhydrAMINE 50 MG/ML SDV IVPUSH ONE (07:12)
[2023-01-09] MEDS ORDERED: Haloperidol Lactate 5 MG/ML SDV IVPUSH ONE (07:13)
[2023-01-09] MEDS ORDERED: Famotidine 20 MG/2 ML SDV IVPUSH ONE (07:13)
[2023-01-09] MEDS ORDERED: Dicyclomine 20 MG/2 ML SDV IM ONE (07:13)
[2023-01-09 07:22] LABS: BASOPHILS PERCENT AUTO 0.2 % (0.0-1.0); EOSINOPHILS PERCENT AUTO 0.2 % (1.0-3.0); HEMATOCRIT 48.1 % (40.0-54.0); HEMOGLOBIN 16.8 g/dL (14.0-18.0); LYMPHOCYTES PERCENT AUTO 18.6 % (20.5-50.1); MEAN CORPUSCULAR HEMOGLOBIN 33.9 pg (27.0-34.0); MEAN CORPUSCULAR HGB CONC 34.9 g/dL (33.0-35.0); MEAN CORPUSCULAR VOLUME 97.2 fL (80-100); MONOCYTES PERCENT AUTO 10.5 % (2-8); NEUTROPHILS PERCENT AUTO 70.5 % (42.2-75.2); PLATELET COUNT,PLT 203 10^3/uL (150-450); RED BLOOD CELL COUNT 4.95 10^6/uL (4.6-6.2); WHITE BLOOD CELL COUNT,WBC 12.7 10^3/uL (5.0-10.0)
[2023-01-09 07:41] LABS: ALANINE AMINOTRANSFERASE,ALT 64 U/L (16-63); ALBUMIN 3.2 g/dL (3.4-5.0); ALKALINE PHOSPHATASE 58 U/L (46-116); ANION GAP 10.6 mEq/L (7-13); ASPARTATE AMNIOTRANSFERASE,AST 37 U/L (15-37); BILIRUBIN TOTAL 0.4 mg/dL (0.2-1.0); BLOOD UREA NITROGEN,BUN 7 mg/dL (7-18); CALCIUM 8.6 mg/dL (8.5-10.1); CARBON DIOXIDE,CO2 29 mmol/L (21-32); CHLORIDE,CL 104 mmol/L (98-107); CREATININE 1.17 mg/dL (0.70-1.30); GLUCOSE RANDOM 123 mg/dL (70-99); LIPASE 65 U/L (16-77); POTASSIUM,K 3.6 mmol/L (3.5-5.1); PROTEIN TOTAL,TP 6.7 g/dL (6.4-8.2); SODIUM,NA 140 mmol/L (136-145)
[2023-01-09 07:43] VITALS: BP 156/93; PULSE 60
[2023-01-09 07:49] LABS: A/G RATIO 0.91; ESTIMATED GFR 85 mL/min (>=60)
== END 2023-01-09 08:04 | disposition home or self-care (01) ==
LOC: DL.ED 06:59
DX: R11.2 Nausea with vomiting, unspecified (principal); F12.90 Cannabis use, unspecified, uncomplicated; J44.9 Chronic obstructive pulmonary disease, unspecified; K21.9 Gastro-esophageal reflux disease without esophagitis; Z79.899 Other long term (current) drug therapy
CPT/HCPCS: 36415; 80053; 83690; 85025; 96361; 96372; 96374; 96375; 99283; 99284-25; J0500; J1200; J1630; J3490; J7030

== ENCOUNTER 2023-01-10 12:34 | Emergency (ER) | payer MEDICAID ==
[2023-01-10] MEDS ORDERED: Sodium Chloride 0.9% 10 ML Syringe FLUSH PRN (12:43)
[2023-01-10] MEDS ORDERED: Famotidine 20 MG/2 ML SDV IVPUSH ONE (12:52)
[2023-01-10] MEDS ORDERED: Sodium Chloride 0.9% 1,000 ML IV ONE (12:52)
[2023-01-10] MEDS ORDERED: diphenhydrAMINE 50 MG/ML SDV IVPUSH ONE (12:52)
[2023-01-10] MEDS ORDERED: Haloperidol Lactate 5 MG/ML SDV IVPUSH ONE (12:53)
[2023-01-10 13:01] LABS: BASOPHILS PERCENT AUTO 0.2 % (0.0-1.0); EOSINOPHILS PERCENT AUTO 0.1 % (1.0-3.0); HEMATOCRIT 48.4 % (40.0-54.0); LYMPHOCYTES PERCENT AUTO 17.2 % (20.5-50.1); MEAN CORPUSCULAR HGB CONC 35.1 g/dL (33.0-35.0); MEAN CORPUSCULAR VOLUME 96.8 fL (80-100); MONOCYTES PERCENT AUTO 11.8 % (2-8); NEUTROPHILS PERCENT AUTO 70.7 % (42.2-75.2); PLATELET COUNT,PLT 193 10^3/uL (150-450); WHITE BLOOD CELL COUNT,WBC 15.2 10^3/uL (5.0-10.0)
[2023-01-10 13:20] LABS: ALBUMIN 3.3 g/dL (3.4-5.0); ANION GAP 14.2 mEq/L (7-13); BILIRUBIN TOTAL 0.7 mg/dL (0.2-1.0); CALCIUM 9.1 mg/dL (8.5-10.1); CREATININE 1.84 mg/dL (0.70-1.30); EST CRCL DRUG DOSING (CG) 61.95 mL/min; POTASSIUM,K 3.2 mmol/L (3.5-5.1)
[2023-01-10 13:21] LABS: A/G RATIO 0.89
[2023-01-10 15:56] VITALS: BP 146/95; PULSE 74
== END 2023-01-10 15:54 | disposition home or self-care (01) ==
LOC: DL.ED 12:34
DX: R11.2 Nausea with vomiting, unspecified (principal); F12.90 Cannabis use, unspecified, uncomplicated; J44.9 Chronic obstructive pulmonary disease, unspecified; K21.9 Gastro-esophageal reflux disease without esophagitis; Z79.899 Other long term (current) drug therapy
CPT/HCPCS: 36415; 80053; 83690; 85025; 96361; 96374; 96375; 99283; 99284-25; J1200; J1630; J3490; J7030

== ENCOUNTER 2023-01-21 11:45 | Emergency (ER) | payer MEDICAID ==
[2023-01-21] MEDS ORDERED: Famotidine 20 MG/2 ML SDV IVPUSH ONE (11:54)
[2023-01-21] MEDS ORDERED: Sodium Chloride 0.9% 10 ML Syringe FLUSH PRN (11:54)
[2023-01-21] MEDS ORDERED: Ondansetron 4 MG/2 ML SDV IVPUSH ONE (11:54)
[2023-01-21] MEDS ORDERED: Sodium Chloride 0.9% 1,000 ML IV ONE ×3 (11:55→12:35)
[2023-01-21 11:58] VITALS: BP 173/118; PULSE 73
[2023-01-21 12:04] LABS: BASOPHILS PERCENT AUTO 0.2 % (0.0-1.0); EOSINOPHILS PERCENT AUTO 0.4 % (1.0-3.0); HEMATOCRIT 55.1 % (40.0-54.0); HEMOGLOBIN 19.2 g/dL (14.0-18.0); LYMPHOCYTES PERCENT AUTO 19.5 % (20.5-50.1); MEAN CORPUSCULAR HEMOGLOBIN 33.6 pg (27.0-34.0); MEAN CORPUSCULAR HGB CONC 34.8 g/dL (33.0-35.0); MEAN CORPUSCULAR VOLUME 96.3 fL (80-100); MONOCYTES PERCENT AUTO 7.4 % (2-8); NEUTROPHILS PERCENT AUTO 72.5 % (42.2-75.2); PLATELET COUNT,PLT 216 10^3/uL (150-450); RED BLOOD CELL COUNT 5.72 10^6/uL (4.6-6.2); WHITE BLOOD CELL COUNT,WBC 15.6 10^3/uL (5.0-10.0)
[2023-01-21 12:23] LABS: A/G RATIO 0.8; ALBUMIN 3.9 g/dL (3.4-5.0); BILIRUBIN DIRECT 0.1 mg/dL (0.0-0.2); BILIRUBIN INDIRECT 0.3; BILIRUBIN TOTAL 0.4 mg/dL (0.2-1.0); PROTEIN TOTAL,TP 8.7 g/dL (6.4-8.2)
[2023-01-21] MEDS ORDERED: Ketorolac 30 MG/ML SDV IVPUSH ONE (12:36)
[2023-01-21 12:44] LABS: ANION GAP 14.9 mEq/L (7-13); CALCIUM 10.1 mg/dL (8.5-10.1); CREATININE 1.21 mg/dL (0.70-1.30); EST CRCL DRUG DOSING (CG) 92.5 mL/min; POTASSIUM,K 3.9 mmol/L (3.5-5.1)
== END 2023-01-21 13:35 | disposition home or self-care (01) ==
LOC: DL.ED 11:45
DX: K27.9 Peptic ulcer, site unspecified, unspecified as acute or chronic, without hemorrhage or perforation (principal); K21.9 Gastro-esophageal reflux disease without esophagitis; F17.210 Nicotine dependence, cigarettes, uncomplicated; Z79.899 Other long term (current) drug therapy
CPT/HCPCS: 36415; 80048; 80076; 83690; 85025; 96361; 96374; 96375; 99284; J1885; J2405; J3490; J7030

== ENCOUNTER 2023-03-09 17:44 | Emergency (ER) | payer MEDICAID ==
[2023-03-09 18:01] VITALS: BP 144/97; PULSE 88
== END 2023-03-09 18:05 | disposition home or self-care (01) ==
LOC: DL.ED 17:44
DX: S01.112A Laceration without foreign body of left eyelid and periocular area, initial encounter (principal); S01.511A Laceration without foreign body of lip, initial encounter; S05.12XA Contusion of eyeball and orbital tissues, left eye, initial encounter; H11.32 Conjunctival hemorrhage, left eye; K21.9 Gastro-esophageal reflux disease without esophagitis; Z79.899 Other long term (current) drug therapy; Y04.2XXA Assault by strike against or bumped into by another person, initial encounter
CPT/HCPCS: 99282; 99283

== ENCOUNTER 2023-03-17 20:28 | Emergency (ER) | payer OTHER, MEDICAID ==
[2023-03-17] MEDS ORDERED: Lidocaine 2% Viscous Solution 15 ML UD PO ONE (20:42)
[2023-03-17] MEDS ORDERED: Aluminum Hydroxide/Magnesium Hydroxide/Simethicone Susp 30 ML Cup PO ONE (20:43)
[2023-03-17] MEDS ORDERED: diphenhydrAMINE 12.5 MG/5 ML Liquid 5 ML UD Cup PO STA (20:43)
[2023-03-17] MEDS ORDERED: Omeprazole 20 MG Cap.CR PO ONE (20:44)
[2023-03-17 20:46] VITALS: BP 151/79; PULSE 79
== END 2023-03-17 20:56 | disposition home or self-care (01) ==
LOC: DL.ED 20:28
DX: K21.9 Gastro-esophageal reflux disease without esophagitis (principal); J45.909 Unspecified asthma, uncomplicated; Z79.899 Other long term (current) drug therapy
CPT/HCPCS: 99283; 99284; A9270-GY

== ENCOUNTER 2023-12-07 15:26 | Emergency (ER) | payer MEDICAID, OTHER ==
[2023-12-07] MEDS: Mupirocin Oint 22 GM Tube TOP ONE (16:24)
[2023-12-07 16:33] LABS: BASOPHILS PERCENT AUTO 0.3 % (0.0-1.0); HEMATOCRIT 51.1 % (40.0-54.0); HEMOGLOBIN 17.5 g/dL (14.0-18.0); LYMPHOCYTES PERCENT AUTO 17.4 % (20.5-50.1); MEAN CORPUSCULAR HEMOGLOBIN 33.1 pg (27.0-34.0); MEAN CORPUSCULAR HGB CONC 34.2 g/dL (33.0-35.0); MEAN CORPUSCULAR VOLUME 96.8 fL (80-100); MONOCYTES PERCENT AUTO 8.8 % (2-8); NEUTROPHILS PERCENT AUTO 72.5 % (42.2-75.2); PLATELET COUNT,PLT 223 10^3/uL (150-450); RED BLOOD CELL COUNT 5.28 10^6/uL (4.6-6.2); WHITE BLOOD CELL COUNT,WBC 14.2 10^3/uL (5.0-10.0)
[2023-12-07 17:10] LABS: SEDIMENTATION RATE MANUAL 17 mm/hr (0-15)
[2023-12-07] MEDS ORDERED: Sodium Chloride 0.9% 10 ML Syringe FLUSH PRN (17:14)
[2023-12-07] MEDS: Sodium Chloride 0.9% 1,000 ML IV ONE (17:24)
[2023-12-07] MEDS: diphenhydrAMINE 50 MG/ML SDV IVPUSH ONE (17:47)
[2023-12-07 17:49] LABS: LACTIC ACID 1.3 mmol/L (0.4-2.0)
[2023-12-07 17:50] VITALS: BP 154/111; PULSE 90
[2023-12-07] MEDS: Sodium Chloride 0.9% 1,500 ML IV ONE (18:15)
== END 2023-12-07 19:23 | disposition home or self-care (01) ==
LOC: DL.ED 15:26
DX: L25.9 Unspecified contact dermatitis, unspecified cause (principal); L08.9 Local infection of the skin and subcutaneous tissue, unspecified; B96.89 Other specified bacterial agents as the cause of diseases classified elsewhere; J45.909 Unspecified asthma, uncomplicated; K21.9 Gastro-esophageal reflux disease without esophagitis; Z79.899 Other long term (current) drug therapy
CPT/HCPCS: 36415; 83605; 84145; 85025; 85651; 87070; 87077; 87186; 96365; 96366; 96375; 99283; A9270; J1200; J3370; J7030; J7050

== ENCOUNTER 2024-03-31 11:40 | Emergency (ER) | payer SELFPAY ==
[2024-03-31 12:41] VITALS: BP 123/75
[2024-03-31] MEDS: Ketorolac 30 MG/ML SDV IM ONE (12:48)
[2024-03-31] MEDS: Lidocaine 5% 700 MG Patch TOP ONE (13:07)
[2024-03-31 13:14] VITALS: PULSE 104
== END 2024-03-31 13:14 | disposition home or self-care (01) ==
LOC: DL.ED 11:40
DX: S29.9XXA Unspecified injury of thorax, initial encounter (principal); S01.511A Laceration without foreign body of lip, initial encounter; J45.909 Unspecified asthma, uncomplicated; K21.9 Gastro-esophageal reflux disease without esophagitis; Z79.51 Long term (current) use of inhaled steroids; Z79.899 Other long term (current) drug therapy; Y04.0XXA Assault by unarmed brawl or fight, initial encounter
CPT/HCPCS: 71101; 96372; 99282; 99284; A9270; J1885

== ENCOUNTER 2024-05-05 15:31 | Emergency (ER) | payer SELFPAY ==
[2024-05-05 15:56] VITALS: BP 150/89; PULSE 80
[2024-05-05] MEDS: HYDROmorphone 0.5 MG/0.5 ML Syringe IVPUSH ONE (16:10)
[2024-05-05] MEDS: Ondansetron 4 MG/2 ML SDV IVPUSH ONE (16:11)
[2024-05-05] MEDS: Sodium Chloride 0.9% 2,000 ML IV SCH (16:11)
[2024-05-05 16:18] LABS: BASOPHILS PERCENT AUTO 0.1 % (0.0-1.0); EOSINOPHILS PERCENT AUTO 0.9 % (1.0-3.0); HEMATOCRIT 52.7 % (40.0-54.0); HEMOGLOBIN 17.8 g/dL (14.0-18.0); LYMPHOCYTES PERCENT AUTO 17.2 % (20.5-50.1); MEAN CORPUSCULAR HEMOGLOBIN 31.2 pg (27.0-34.0); MEAN CORPUSCULAR HGB CONC 33.8 g/dL (33.0-35.0); MEAN CORPUSCULAR VOLUME 92.3 fL (80-100); MONOCYTES PERCENT AUTO 9.6 % (2-8); NEUTROPHILS PERCENT AUTO 72.2 % (42.2-75.2); PLATELET COUNT,PLT 248 10^3/uL (150-450); RED BLOOD CELL COUNT 5.71 10^6/uL (4.6-6.2); WHITE BLOOD CELL COUNT,WBC 14.1 10^3/uL (5.0-10.0)
[2024-05-05 16:45] LABS: PROTHROMBIN TIME 10.6 SEC (9.0-12.0)
[2024-05-05 16:58] LABS: A/G RATIO 0.8; ALBUMIN 3.7 g/dL (3.4-5.0); ANION GAP 12.7 mEq/L (7-13); BILIRUBIN DIRECT 0.1 mg/dL (0.0-0.2); BILIRUBIN INDIRECT 0.3; BILIRUBIN TOTAL 0.4 mg/dL (0.2-1.0); CREATININE 0.81 mg/dL (0.70-1.30); EST CRCL DRUG DOSING (CG) 112.83 mL/min; POTASSIUM,K 3.7 mmol/L (3.5-5.1); PROTEIN TOTAL,TP 8.5 g/dL (6.4-8.2)
[2024-05-05] MEDS: GI Cocktail Oral Solution 30 ML PO ONE (17:28)
[2024-05-05] MEDS: Omeprazole 20 MG Cap.CR PO ONE (17:57)
== END 2024-05-05 18:02 | disposition home or self-care (01) ==
LOC: DL.ED 15:31
DX: K29.00 Acute gastritis without bleeding (principal); J45.909 Unspecified asthma, uncomplicated; K21.9 Gastro-esophageal reflux disease without esophagitis; F17.210 Nicotine dependence, cigarettes, uncomplicated; Z79.899 Other long term (current) drug therapy; Z79.51 Long term (current) use of inhaled steroids
CPT/HCPCS: 36415; 80048; 80076; 80307; 82150; 83690; 85025; 85610; 96361; 96374; 96375; 99284-25; A9270-GY; J2405; J7030

== ENCOUNTER 2024-05-23 17:00 | Emergency (ER) | payer MEDICAID, OTHER ==
[2024-05-23] MEDS: Acetaminophen 325 MG Tab PO ONE (17:45)
[2024-05-23] MEDS: Ibuprofen 600 MG Tab PO ONE (17:47)
[2024-05-23 18:03] LABS: BASOPHILS PERCENT AUTO 0.3 % (0.0-1.0); EOSINOPHILS PERCENT AUTO 0.1 % (1.0-3.0); HEMATOCRIT 47.5 % (40.0-54.0); HEMOGLOBIN 15.9 g/dL (14.0-18.0); LYMPHOCYTES PERCENT AUTO 18.4 % (20.5-50.1); MEAN CORPUSCULAR HEMOGLOBIN 31.4 pg (27.0-34.0); MEAN CORPUSCULAR HGB CONC 33.5 g/dL (33.0-35.0); MEAN CORPUSCULAR VOLUME 93.9 fL (80-100); MONOCYTES PERCENT AUTO 13.2 % (2-8); PLATELET COUNT,PLT 217 10^3/uL (150-450); RED BLOOD CELL COUNT 5.06 10^6/uL (4.6-6.2)
[2024-05-23 18:22] LABS: A/G RATIO 0.8; ALBUMIN 3.5 g/dL (3.4-5.0); ANION GAP 11.3 mEq/L (7-13); BILIRUBIN TOTAL 0.3 mg/dL (0.2-1.0); BUN/CREATININE RATIO 10.9 (No establ ref range); CREATININE 1.01 mg/dL (0.70-1.30); EST CRCL DRUG DOSING (CG) 104.03 mL/min; POTASSIUM,K 4.3 mmol/L (3.5-5.1)
[2024-05-23] MEDS: Albuterol/Ipratropium 3.0-0.5 MG/3 ML Neb Soln NEB ONE (18:23)
[2024-05-23] MEDS: Albuterol 6.7 GM Inhaler INH ONE (18:54)
[2024-05-23] MEDS: Cefuroxime 250 MG Tab PO ONE (18:55)
[2024-05-23] MEDS: Doxycycline Monohydrate 100 MG Cap PO ONE (18:55)
[2024-05-23 19:06] VITALS: BP 122/95; PULSE 109
== END 2024-05-23 19:00 | disposition home or self-care (01) ==
LOC: DL.ED 17:00
DX: J06.9 Acute upper respiratory infection, unspecified (principal); B97.89 Other viral agents as the cause of diseases classified elsewhere; J45.909 Unspecified asthma, uncomplicated; K21.9 Gastro-esophageal reflux disease without esophagitis; Z79.51 Long term (current) use of inhaled steroids; Z79.899 Other long term (current) drug therapy
CPT/HCPCS: 80053; 85025; 87070; 87205; 87428-QW; 99283; A9270-GY; J7620-GY

== ENCOUNTER 2024-05-24 21:10 | Emergency (ER) | payer MEDICAID, OTHER ==
[2024-05-24 21:29] VITALS: BP 123/71; PULSE 77
[2024-05-24] MEDS: GI Cocktail Oral Solution 30 ML PO ONE (21:33)
== END 2024-05-24 21:40 | disposition home or self-care (01) ==
LOC: DL.ED 21:10
DX: K21.9 Gastro-esophageal reflux disease without esophagitis (principal); J45.909 Unspecified asthma, uncomplicated; Z79.51 Long term (current) use of inhaled steroids; Z79.899 Other long term (current) drug therapy
CPT/HCPCS: 99283; A9270-GY

== ENCOUNTER 2024-10-14 15:02 | Emergency (ER) | payer MEDICAID, OTHER ==
[2024-10-14 15:58] VITALS: BP 129/79; PULSE 109
[2024-10-14] MEDS: Bacitracin Oint 1 GM U/D Packet TOP ONE (16:45)
== END 2024-10-14 16:49 | disposition home or self-care (01) ==
LOC: DL.ED 15:02
DX: S93.402A Sprain of unspecified ligament of left ankle, initial encounter (principal); J45.909 Unspecified asthma, uncomplicated; K21.9 Gastro-esophageal reflux disease without esophagitis; Z79.51 Long term (current) use of inhaled steroids; Z79.899 Other long term (current) drug therapy; W10.9XXA Fall (on) (from) unspecified stairs and steps, initial encounter; Y93.89 Activity, other specified
CPT/HCPCS: 73610-LT; 99282; 99283; A9270-GY

== ENCOUNTER 2025-02-19 11:50 | Emergency (ER) | payer MEDICAID ==
[2025-02-19] MEDS ORDERED: Sodium Chloride 0.9% 10 ML Syringe FLUSH PRN (11:59)
[2025-02-19] MEDS: GI Cocktail Oral Solution 30 ML PO ONE (12:12)
[2025-02-19] MEDS: Ondansetron 4 MG/2 ML SDV IVPUSH ONE (12:25)
[2025-02-19 12:26] LABS: BASOPHILS PERCENT AUTO 0.4 % (0.0-1.0); EOSINOPHILS PERCENT AUTO 1.0 % (1.0-3.0); LYMPHOCYTES PERCENT AUTO 26.9 % (20.5-50.1); MONOCYTES PERCENT AUTO 13.8 % (2-8); NEUTROPHILS PERCENT AUTO 57.9 % (42.2-75.2); PLATELET COUNT,PLT 139 10^3/uL (150-450); RED BLOOD CELL COUNT 6.00 10^6/uL (4.6-6.2); WHITE BLOOD CELL COUNT,WBC 10.0 10^3/uL (5.0-10.0)
[2025-02-19 12:42] LABS: INR 1.0 (0.9-1.2)
[2025-02-19 12:50] LABS: A/G RATIO 0.7; ALANINE AMINOTRANSFERASE,ALT 91 U/L (16-63); ASPARTATE AMNIOTRANSFERASE,AST 91 U/L (15-37); BILIRUBIN TOTAL 0.6 mg/dL (0.2-1.0); BLOOD UREA NITROGEN,BUN 13 mg/dL (7-18); CARBON DIOXIDE,CO2 31 mmol/L (21-32); CHLORIDE,CL 96 mmol/L (98-107); CREATININE 0.79 mg/dL (0.70-1.30); EST CRCL DRUG DOSING (CG) 137.32 mL/min; ESTIMATED GFR 120 mL/min (>=60); ETHANOL BLOOD MEDICAL < 3 mg/dL (0); GLUCOSE RANDOM 96 mg/dL (70-99); POTASSIUM,K 3.7 mmol/L (3.5-5.1); PROTEIN TOTAL,TP 9.2 g/dL (6.4-8.2); SODIUM,NA 139 mmol/L (136-145)
[2025-02-19 14:00] VITALS: BP 132/85; PULSE 64
== END 2025-02-19 14:26 | disposition home or self-care (01) ==
LOC: DL.ED 11:50
DX: K21.9 Gastro-esophageal reflux disease without esophagitis (principal); J45.909 Unspecified asthma, uncomplicated; Z79.899 Other long term (current) drug therapy
CPT/HCPCS: 36415; 80053; 80307; 83605; 83690; 83735; 84484; 85025; 85610; 96361; 96374; 96375; 99284; 99284-25; A9270-GY; J2405; J2470; J7030